=== PATIENT | female | born 1985 | race Caucasian/White ===

== ENCOUNTER 2020-02-13 17:07 | Emergency (ER) | payer MEDICAID, SELFPAY ==
[2020-02-13 17:08] VITALS: BP 129/87; PULSE 76; RESP 16; TEMP 36.8; O2SAT 98
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
--- NOTE | 2020-02-13 17:50 | NUR.NOTE ---
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
[2020-02-13 20:02] VITALS: BP 122/80; PULSE 70; RESP 16; TEMP 36.8; O2SAT 98
== END 2020-02-13 20:15 | disposition home or self-care (01) ==
PROVIDERS: Emergency Provider Physician Assistant; PCP Physician Assistant
DX: T74.11XA Adult physical abuse, confirmed, initial encounter (principal); R51 Headache; M54.2 Cervicalgia; Y04.2XXA Assault by strike against or bumped into by another person, initial encounter; Y07.01 Husband, perpetrator of maltreatment and neglect
CPT/HCPCS: 99284; 70450; 72125; 99283

== ENCOUNTER 2020-05-15 21:01 | Emergency (ER) | payer MEDICAID, SELFPAY ==
[2020-05-15 21:02] VITALS: BP 135/77; PULSE 90; RESP 20; TEMP 36.6; O2SAT 98
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
--- NOTE | 2020-05-15 21:25 | DI.CT_ITS ---
EXAM: CT HEAD CERV SPINE FACIAL WO COMPARISON: CT CT HEAD CERVICAL SPINE WO from 02/13/2020 FINDINGS: CT examination of the cervical spine was performed without contrast administration. There is no evide nce of acute cervical spine fracture or dislocation. Tracheolaryngeal structures appear intact. No ce rvical mass or adenopathy. Intervertebral disc spaces are well maintained. Noncontrast cranial CT was performed. Ventricular system is normal in appearance. No evidence of acut e intracranial hemorrhage, mass effect, or midline shift. No calvarial fracture. The orbital and temp oral bone structures appear intact. Noncontrast CT of the facial region was performed. Facial fracture. Normally aerated paranasal sinu ses noted. Orbital contents appear intact and there is no orbital fracture. IMPRESSION: No evidence of acute cervical spine injury. No evidence of acute intracranial injury. Negative CT facial region. RADIATION DOSE DELIVERED: Total DLP Total DLP DATA REPOSITORY: All CT scans at this facility are submitted to the National Radiology Data Registry (NRDR) Dose Index Registry (DIR) with the [employer] (ACR). RADIATION OPTIMIZATION: All CT scans at this facility use at least one of these dose optimization te chniques: automated exposure control; mA and/or kV adjustment per patient size (includes targeted exa ms where dose is matched to clinical indication); or iterative reconstruction.
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
== END 2020-05-15 22:10 | disposition home or self-care (01) ==
PROVIDERS: Emergency Provider Emergency Medicine; PCP Physician Assistant
DX: S06.9X9A Unspecified intracranial injury with loss of consciousness of unspecified duration, initial encounter (principal); Y04.2XXA Assault by strike against or bumped into by another person, initial encounter; Y07.03 Male partner, perpetrator of maltreatment and neglect; M54.2 Cervicalgia
CPT/HCPCS: 99284; 70450; 70486; 72125

== ENCOUNTER 2020-11-03 01:31 | Emergency (ER) | payer MEDICAID, SELFPAY ==
[2020-11-03 01:36] VITALS: BP 115/75; PULSE 75; RESP 15; TEMP 36.7; O2SAT 99
--- NOTE | 2020-11-03 01:42 | ED.GENADUL_ITS ---
Discharge Plan Disposition Patient Disposition: HOME Condition: Good Discharge Details Clinical Impression: Abdominal pain Primary Care Provider: Michelle Bullock ED Provider: Oumar Mendieta Meds and New Rx's Prescriptions: Continued multivitamin tablet 1 tab PO DAILY RF: 0 propranolol 60 mg capsule,extended release 24 hr 60 mg PO DAILY RF: 0 cholecalciferol (vitamin D3) 2,000 unit capsule 1,000 unit PO DAILY RF: 0 norgestimate-ethinyl estradiol [Ortho Tri-Cyclen (28)] 0.18/0.215/0.25 mg-35 mcg (28) Tablet 1 tab PO DAILY RF: 0 paroxetine HCl 20 mg tablet 20 mg PO DAILY RF: 0 gabapentin 100 mg capsule 100 mg PO HS RF: 0 Changed MOTRIN IB 200 MG tablet 3 tab PO Q6H PRN PRNQty: 0 RF: 0 Discharge Instructions Additional Instructions: 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 Drink plenty of fluids to stay hydrated. Use ibuprofen 2 to 3 tablets every 6-8 hours for pain. Return to ED for fever, persistent vomiting, new or worsening pain. Stand Alone Forms: Work Release Medical Decision Making Urine test is negative. Abdominal exam is completely benign. No CVAT. Patient orthostatic by systolic pressure. Pulse unchanged but patient on propranolol. IV established and a liter of LR ordered. Toradol ordered. Hemoglobin hematocrit ordered. Patient urinalysis with trace blood no evidence of infection. Hemoglobin and hematocrit are normal. Repeat orthostatics after 1 L now normal with good blood pressure. Pain better though not resolved with Toradol. Patient reports allergy to Tylenol. She also reports history of seizure disorder, which should make tramadol contraindicated. She appears very comfortable. I will hold off treating with narcotics at this point. She will be discharged with instructions to use ibuprofen over the next few days and contact her DIRECTOR OF NURSES REGISTRY for follow-up. Lab Data Lab results reviewed: Yes I reviewed the patient's lab results. HPI General Mode of arrival: ambulatory . Date/Time Provider Initiated Documentation: 11/03/20 01:34 . Limitations to Documentation: no limitations . Information obtained by: patient and RN notes reviewed . HPI Narrative: Patient presents to the ED with right side lower abdominal pain. Patient reports history of endometriosis and ovarian cyst. She reports a recent diagnosis of right ovarian cyst and followed up with her DIRECTOR OF NURSES REGISTRY couple of weeks ago. She reports menstruation for the last week with heavy bleeding today. She feels lightheaded and dizzy at times. She has had worsening right abdominal pain and could not sleep tonight. Pain has been present for few days just worse tonight. She did not take anything for this. She reports prior history of narcotic abuse but clean and sober for years. She has been on Ultram previously. She denies any urinary symptoms. She denies back pain. She denies fever. She has had some diarrhea for the last couple of days. She has had nausea but no vomiting. Related Data Home Medications Medication Instructions Recorded Confirmed cholecalciferol (vitamin D3) 50 1,000 unit PO DAILY cap 07/02/18 11/03/20 mcg (2,000 unit) capsule multivitamin 1 tab PO DAILY 07/02/18 11/03/20 propranolol 60 mg capsule,24 60 mg PO DAILY 07/02/18 11/03/20 hr,extended release norgestimate-ethinyl estradiol 1 tab PO DAILY 02/13/20 [Ortho Tri-Cyclen (28)] Motrin Ib 3 tab PO Q6H PRN PRN #0 11/03/20 11/03/20 gabapentin 100 mg PO HS 11/03/20 11/03/20 paroxetine HCl 20 mg PO DAILY 11/03/20 11/03/20 Previous Rx's Medication Instructions Recorded Motrin Ib 3 tab PO Q6H PRN PRN #0 11/03/20 Allergies Allergy/AdvReac Type Severity Reaction Status Date / Time hydroxyzine Allergy Intermediate HIVES Verified 11/03/20 01:45 hydrocodone bitartrate Allergy RASH/HIVES Unverified 11/03/20 01:45 [From Vicodin] menthol [From Icy Hot] Allergy Unverified 11/03/20 01:45 methyl salicylate Allergy Unverified 11/03/20 01:45 [From Icy Hot] fluoxetine [From Prozac] AdvReac Mild CRIES Verified 11/03/20 01:45 acetaminophen AdvReac VOMITING Unverified 11/03/20 01:45 diphenhydramine HCl AdvReac VOMITING Unverified 11/03/20 01:45 [From Benadryl] General BENJI: 2 Review of Systems Narrative: As documented in HPI otherwise negative as below. Const: no fever, chills, weakness Resp: no cough, SOB, pleuritic pain CV: no CP, diaphoresis, edema, syncope GI: no vomiting Neuro: no headache, numbness, focal weakness, confusion PFSH Medical History (Updated 11/03/20 @ 04:18 by Oumar Mendieta MD) Depression Drug abuse Migraine Seizure disorder Surgical History Excision, Lipoma L upper back Dr Sotelo 2001 extraction wisdom teeth age 22yrs H/O cervical polypectomy hernia repair ? type age 9yo Family History Father Unknown family medical history Mother Cancer Paternal Uncle Heart disease Nephew Congenital malformation of brain Maternal Aunt Mental retardation Other Diabetes Hyperlipidemia Mental disorder Personal history of malignant neoplasm Social History Smoking/Tobacco Use Status: Current-Occasional Smoking risk assessment performed?: Yes Alcohol Intake: never Drug use: Current Sobriety Substance use type: does not use and former substance user Details: Clean x 14 years. Household members: spouse Do you feel safe at home: Yes Exam Narrative Exam Narrative: Const: WDWN female in NAD. HEENT: NC/AT. Normal facial exam. Eyes: Normal conjunctiva and sclera. Neck: Supple. Trachea midline. Lungs: Normal respiratory effort. Lungs are clear. Cor: RRR without murmur/gallop. Good radial pulses. GI: Soft. NT/ND. No guarding or rebound. Back: No CVAT Pelvic: deferred Neuro: A+O x 3. Normal speech, mentation, gait. Cranial nerves II - XII grossly intact. No gross motor or sensory deficit. Ext: No C/C/E. Skin: Warm and dry without rash.
[2020-11-03 02:36] VITALS: BP 102/81; BP 122/72; PULSE 76; PULSE 79
[2020-11-03 02:41] VITALS: BP 102/81; BP 122/72; PULSE 72; PULSE 79
[2020-11-03 03:00] LABS: Bilirubin Negative (Negative); Blood Trace-intact (Negative); Clarity Clear (Clear); Glucose Negative (Negative); Ketones Negative (Negative); Leukocyte Esterase Negative (Negative); Nitrite Negative (Negative); Specific Gravity >= 1.030 (1.005-1.025); Urobilinogen 0.2 EU/dL (Up TO 0.2); pH 6.5 (5-8)
[2020-11-03 03:11] LABS: Bacteria Rare HPF (Negative); C & S Indicated? No; Casts Negative LPF (Negative); Crystals Negative HPF (Negative); Epithelial Cells Rare HPF (Negative); Mucus Negative (Negative); WBC Negative HPF (0-5)
[2020-11-03] MEDS: Lactated Ringers 1,000 ML 1000 ML IV (03:16)
[2020-11-03] MEDS: Ketorolac 30 MG/ML VIAL IVP (03:16)
[2020-11-03 03:33] LABS: HCT 37.9 % (36.0-46.0); HGB 12.7 g/dL (11.2-15.7)
[2020-11-03 03:40] VITALS: BP 110/66; PULSE 60; RESP 18; O2SAT 100
[2020-11-03 04:12] VITALS: BP 113/72; BP 115/72; BP 121/82; PULSE 64; PULSE 70; PULSE 78
== END 2020-11-03 04:29 | disposition home or self-care (01) ==
PROVIDERS: Emergency Provider Emergency Medicine; PCP Family Medicine
DX: R10.31 Right lower quadrant pain (principal); R11.0 Nausea; R42 Dizziness and giddiness
CPT/HCPCS: 36415; 81025; 96361; 96374; 99284; 81003; 81015; 85014; 85018; 99283; J1885

== ENCOUNTER 2020-11-28 07:29 | Emergency (ER) | payer MEDICAID, SELFPAY ==
[2020-11-28 07:37] VITALS: BP 133/83; PULSE 78; RESP 16; TEMP 36.4; O2SAT 100
--- OUTSIDE RECORDS SUMMARY | 2020-11-28 07:42 | XMS_ITS ---
:1985 Author Organization [facility] Address [address] [place] [address] Care Team Providers Name Role Phone Bullock Unavailable Unavailable PROBLEMS Type Condition ICD9-CM [id number] Onset Condition SNOMED Cod e Code Code Dates Status Problem Pseudoseizure F44.5 Active 801760 00 Problem Left carpal tunnel G56.02 Active 5 7057637 syndrome Problem Cervical high risk R87.810 Active 1 [id number] human papillomavirus (HPV) DNA test positive Problem Opioid dependence F11.21 Active 19 8062634 in remission Problem PTSD F43.10 Active 14160811 (post-traumatic stress disorder) Problem Sleep disorder G47.9 Active 51556 005 Problem Dysthymic disorder F34.1 Apr, Active 7 4011892 2017 Problem Rhinitis J31.0 Active 15269984 Problem Panic attack as F41.0 Active 1920 41450 reaction to stress Problem Alcohol dependence F10.21 Active 1 37605824 in remission ALLERGIES Substance Reaction Event Type Date Status HydrOXYzine HCl hives Drug Allergy Jul, Active Vicodin nausea Drug Allergy Jul, Active icy hot patch hives Non Drug Allergy Jul, Active Benadryl Allergy hives Drug Allergy Jul, Active PROzac cries alot Drug Allergy Jul, Active Acetaminophen nausea Drug Allergy Jul, Active ENCOUNTERS Encounter Location Date Diagnosis [facility] Aug, [place] [address] [facility] Aug, [place] [address] [facility] 16 Jul, 2020 [place] [address] [facility] 11 Jul, 2020 [place] [address] cancer in mo ther Z80.3 ; Cervical high ri sk human papillomavirus ( HPV) DNA test positive R8 7.810 ; PTSD (post-traum atic stress disorder) F43.10 and Well adult h ealth check Z00.00 [facility] 06 Jun, 2020 [place] [address] screening Z0 2.83 ; Alcohol screening Z13.89 ; Screening for de pression Z13.89 ; Cervica l radiculopathy M5 4.12 ; PTSD (post-traum atic stress disorder) F43.10 ; Dysuria R30.0 ; Need for influenza vaccin ation Z23 and Other specif ied personal risk fa ctors, not elsewhere classi fied Z91.89 [facility] Jun, [place] [address] [facility] May, [place] [address] [facility] Apr, [place] [address] [facility] Apr, [place] [address] [facility] Mar, Rhi nitis J31.0 [place] [address] disorder G47 .9 [facility] Jan, [place] [address] [facility] Jan, [place] [address] [facility] December, [place] [address] [facility] December, [place] [address] stress disor yakov) F43.10 ; Dysthymic disord er F34.1 and Panic attack as reaction to stre ss F41.0 [facility] December, [place] [address] [facility] Dec, [place] [address] [facility] Dec, PTSD [place] [address] stress disor yakov) F43.10 ; Dysthymic disord er F34.1 and Panic attack as reaction to stre ss F41.0 [facility] Dec, [place] [address] [facility] Dec, [place] [address] [facility] Dec, [place] [address] [facility] Dec, [place] [address] [facility] Dec, [place] [address] [facility] Oct, L[place] [address] to stress F4 1.0 [facility] Oct, [place] [address] [facility] Oct, PTSD [place] [address] stress disor yakov) F43.10 ; Dysthymic disord er F34.1 and Panic attack as reaction to stre ss F41.0 [facility] Oct, [place] [address] [facility] Oct, PTSD ([place] [address] stress disor yakov) F43.10 ; Dysthymic disord er F34.1 and Panic attack as reaction to stre ss F41.0 [facility] Oct, [place] [address] [facility] Oct, [place] [address] [facility] Oct, P[place] [address] stress disor yakov) F43.10 [facility] Oct, [place] [address] [facility] Oct, [place] [address] [facility] Oct, [place] [address] [facility] Oct, PTSD [place] [address] stress disor yakov) F43.10 and Encounter fo r surveillance of contraceptive pi lls Z30.41 [facility] Oct, [place] [address] [facility] Oct, [place] [address] [facility] Sep, [place] [address] [facility] Sep, [place] [address] [facility] Sep, [place] [address] [facility] Sep, [place] [address] [facility] Sep, [place] [address] R29.818 [facility] Sep, PTSD ([place] [address] stress disor yakov) F43.10 ; Dysthymic disord er F34.1 and Panic attack as reaction to stre ss F41.0 [facility] Sep, [place] [address] [facility] Aug, [place] [address] [facility] Aug, [place] [address] [facility] Aug, [place] [address] [facility] Aug, PTSD ([place] [address] stress disor yakov) F43.10 ; Dysthymic disord er F34.1 and Panic attack as reaction to stre ss F41.0 [facility] Jul, [place] [address] administered at current visit Z23 ; Coug h R05 and Rhinitis J31.0 [facility] Jul, [place] [address] [facility] Jul, [place] [address] [facility] Jul, [place] [address] [facility] Jul, [place] [address] [facility] Jul, [place] [address] of contracep tive pills Z30.41 and Panic attack as reaction to stre ss F41.0 [facility] Jul, [place] [address] [facility] Jul, [place] [address] [facility] Jun, [place] [address] [facility] Jun, PTSD ([place] [address] stress disor yakov) F43.10 ; Dysthymic disord er F34.1 and Panic attack as reaction to stre ss F41.0 [facility] May, Sor e throat J02.9 [place] [address] [facility] May, [place] [address] [facility] May, [place] [address] [facility] May, [place] [address] [facility] May, [place] [address] [facility] May, PTSD ([place] [address] stress disor yakov) F43.10 ; Dysthymic disord er F34.1 and Panic attack as reaction to stre ss F41.0 [facility] Apr, Abd ominal pain R10.9 [place] [address] [facility] Apr, [place] [address] [facility] Apr, PTSD ([place] [address] stress disor yakov) F43.10 ; Dysthymic disord er F34.1 and Panic attack as reaction to stre ss F41.0 [facility] Apr, [place] [address] [facility] Apr, [place] [address] remission F11.2 1 and Alcohol dependen ce in remission F10.21 [facility] Apr, [place] [address] [facility] Apr, PTSD ([place] [address] stress disor yakov) F43.10 ; Dysthymic disord er F34.1 and Panic attack as reaction to stre ss F41.0 [facility] Apr, [place] [address] [facility] Apr, [place] [address] [facility] Apr, PTSD ([place] [address] stress disor yakov) F43.10 ; Dysthymic disord er F34.1 and Panic attack as reaction to stre ss F41.0 [facility] Apr, Pse udoseizure F44.5 ; [place] [address] (post-trauma tic stress disorder) F43.10 and Panic attack as reacti on to stress F41.0 [facility] Apr, [place] [address] [facility] Mar, [place] [address] [facility] Mar, [place] [address] [facility] Mar, [place] [address] [facility] Mar, [place] [address] [facility] Mar, Ski n abnormality L98.9 [place] [address] [facility] Mar, [place] [address] [facility] Mar, [place] [address] [facility] Mar, Ski n lesion of back L98.9 [place] [address] [facility] Jan, Tic k [place] [address] [facility] Jan, [place] [address] [facility] Jan, [place] [address] Z00.00 ; PTS D (post-traumatic stress disorder) F43.10 ; Pseudoseizure F4 4.5 ; Left carpal tunnel sy ndrome G56.02 ; Cervica l high risk human papil lomavirus (HPV) DNA test p ositive R87.810 ; Rhinit is J31.0 ; Dysthymic disord er F34.1 ; Panic attack as reaction to stress F41.0 ; Encounter for dr vinay screening Z02.83 ; Screening for ce rvical cancer Z12.4 ; A lcohol screening Z13.89 ; Soft tissue mass M79. 9 and Encounter for martin rveillance of contraceptive pills Z30.41 [facility] Jan, [place] [address] [facility] December, [place] [address] [facility] December, [place] [address] screening Z0 2.83 ; Alcohol screening Z13.89 ; Contraception Z7 8.9 and Pre-conception c ounseling Z31.69 [facility] December, [place] [address] [facility] December, [place] [address] syndrome G56 .02 [facility] Dec, [place] [address] [facility] Dec, [place] [address] [facility] Dec, [place] [address] [facility] Dec, [place] [address] [facility] Oct, [place] [address] [facility] Oct, [place] [address] [facility] Oct, [place] [address] [facility] Oct, Ilan sea and vomiting R11.2 [place] [address] and Sore thr oat J02.9 [facility] Oct, PTSD [place] [address] stress disor yakov) F43.10 ; Dysthymic disord er F34.1 and Panic attack as reaction to stre ss F41.0 [facility] Oct, [place] [address] [facility] Oct, Dysthymic di sorder F34.1 [place] [address] [place] [address] [facility] Oct, PTSD ([place] [address] stress disor yakov) F43.10 ; Dysthymic disord er F34.1 and Panic attack as reaction to stre ss F41.0 [facility] Sep, [place] [address] [facility] Sep, Neck pain M5 4.2 [place] [address] carpal tunne l syndrome G56.02 [facility] Sep, PTSD [place] [address] stress disor yakvo) F43.10 ; Dysthymic disord er F34.1 and Panic attack as reaction to stre ss F41.0 [facility] Sep, Con tact dermatitis L25.9 [place] [address] [facility] Sep, [place] [address] [facility] Sep, [place] [address] [facility] Sep, [place] [address] [facility] Aug, [place] [address] cancer in mo ther Z80.3 ; Breast pain, lef t N64.4 ; Nipple discharge in female N64.52 ; Screeni ng breast examination Z12. 39 and Nasal congestion with rhinorrhea J34.8 9 [facility] Aug, [place] [address] [facility] Aug, [place] [address] [facility] Aug, [place] [address] [facility] Jul, Acu te sinusitis J01.90 [place] [address] [facility] Jul, [place] [address] [facility] Jul, Pseudoseizur [place]44[place]5 [place] [address] Dysthymic di sorder F34.1 [facility] Jul, [place] [address] [facility] Jul, PTSD ([place] [address] stress disor yakov) F43.10 ; Dysthymic disord er F34.1 and Panic attack as reaction to stre ss F41.0 [facility] Jul, [place] [address] [facility] Jul, [place] [address] contraceptiv e management, unspecified Z30. 9 [facility] Jul, [place] [address] screening Z0 2.83 ; Influenza vaccin ation administered at current visit Z23 ; Alco hol screening Z13.89 ; Swelling, lymph nodes R59.9 ; Encounte r for surveillance of injectable contraceptive Z3 0.42 and Cold J00 [facility] Jul, [place] [address] [facility] Jun, [place] [address] [facility] Jun, [place] [address] [facility] Jun, Neck sprain, [place] [address] encounter S1 3.9XXA and Left carpal tunn el syndrome G56.02 [facility] Jun, PTSD ([place] [address] stress disor yakov) F43.10 ; Dysthymic disord er F34.1 and Panic attack as reaction to stre ss F41.0 [facility] Jun, [place] [address] [facility] Jun, Pha ryngitis J02.9 [place] [address] Cough R05 [facility] Jun, [place] [address] [facility] May, Neck sprain, [place] [address] encounter S1 3.9XXA and Left carpal tunn el syndrome G56.02 [facility] May, Dys thymic disorder F34.1 [place] [address] and Rhinitis J31.0 [facility] May, [place] [address] [facility] Apr, [place] [address] [facility] Apr, Den sarah disorder K08.9 [place] [address] Contraceptiv e surveillance Z30.40 [facility] Apr, PTSD [place] [address] stress disor yakov) F43.10 ; Dysthymic disord er F34.1 and Panic attack as reaction to stre ss F41.0 [facility] Apr, [place] [address] [facility] Apr, [place] [address] [facility] Mar, Dys thymic disorder F34.1 [place] [address] [facility] Mar, [place] [address] [facility] Mar, PTSD ([place] [address] stress disor yakov) F43.10 ; Dysthymic disord er F34.1 and Panic attack as reaction to stre ss F41.0 [facility] Mar, [place] [address] [facility] Mar, Pse udoseizure F44.5 [place] [address] [facility] Mar, [place] [address] [facility] Mar, [place] [address] [facility] Mar, [place] [address] [facility] Mar, Shira n, dental K08.89 [place] [address] Face pain R5 1 [facility] Jan, [place] [address] [facility] Jan, [place] [address] to stress F4 1.0 [facility] Jan, [place] [address] [facility] Jan, [place] [address] syndrome G56 .02 and Sprain of interphalange al joint of left ring fin jey, initial encounte r S63.635A [facility] [address] [place] [address] Jan, PTSD ([place] [address] stress disor yakov) F43.[address] Jan, PTSD ([place] [address] stress disor yakov) F43.10 ; Head injury S09. 90XA and Dysthymic disord er F34.1 [facility] Jan, Rhi [place]itis J31[place]0 [place] [address] Dysthymic di sorder F34.1 [facility] [address] [place] [address] Jan, PTSD ([place] [address] stress disor yakov) F43.10 ; Panic attack as reaction to stress F41.0 and Dysthymic disord er F34.1 [facility] [address] [place] [address] December, [place] [address] joint of lef t ring finger, initial encounte r S63.635A [facility] [address] [place] [address] December, [place] [address] joint of lef t ring finger, initial encounte r S63.635A [facility] [address] [place] [address] December, Dental infe ction K04.7 [place] [address] Injury of fi nger of left hand, subsequent encounter S69.92XD [facility] [address] [place] [address] December, PTSD ([place] [address] stress disor yakov) F43.[address] December, PTSD ([place] [address] stress disor yakov) F43.10 [facility] [address] [place] [address] December, PTSD ([place] [address] stress disor yakov) F43.[address] December, PTSD ([place] [address] stress disor yakov) F43.10 [facility] [address] [place] [address] December, [place] [address] contraceptiv e management, unspecified Z30. 9 ; PTSD (post-traumatic stress disorder) F43.10 and Pseudoseizure F4 4.5 [facility] Dec, [place] [address] pneumonia J1 8.9 [facility] Dec, PTSD ([place] [address] stress disor yakov) F43.10 [facility] Dec, [place] [address] [facility] Dec, PTSD ([place] [address] stress disor yakov) F43.10 [facility] Dec, [place] [address] [facility] Dec, [place] [address] Dec, PTSD ([place] [address] stress disor yakov) F43.10 ; Head injury S09. 90XA and Pseudoseizure F4 4.5 [facility] Dec, [place] [address] Dec, PTSD ([place] [address] stress disor yakov) F43.10 ; Head injury S09. 90XA and Pseudoseizure F4 4.5 [facility] Oct, [place] [address] Oct, PTSD ([place] [address] stress disor yakov) F43.10 and Head injury S09.90XA [address] Oct, PTSD ([place] [address] stress disor yakov) F43.10 and Head injury S09.90XA [address] Oct, PTSD ([place] [address] stress disor yakov) F43.10 ; Head injury S09. 90XA and Pseudoseizure F4 4.[address] Oct, Head injury S09[place] [address] PTSD (post-t raumatic stress disorder) F43.[address] Oct, PTSD ([place] [address] stress disor yakov) F43.[address] Oct, PTSD ([place] [address] stress disor yakov) F43.10 ; Head injury S09. 90XA and Pseudoseizure F4 4.[address] Oct, PTSD ([place] [address] stress disor yakov) F43.10 ; Head injury S09. 90XA and Pseudoseizure F4 4.[address] Oct, PTSD ([place] [address] stress disor yakov) F43.10 and Head injury S09.90XA [facility] [address] [place] [address] Oct, PTS [place] [address] stress disor yakov) F43.10 [facility] [address] [place] [address] Oct, [place] [address] [facility] [address] [place] [address] Oct, [place] [address] Z30.40 and B urn T30.[address] Oct, Head [place]09[place] [address] Sep, PTSD ([place] [address] stress disor yakov) F43.[address] Sep, PTSD ([place] [address] stress disor yakov) F43.[address] Sep, PTSD ([place] [address] stress disor yakov) F43.10 [facility] [address] [place] [address] Sep, [place] [address] M25.571 and Strain of peroneal tendon of right foot, initial en counter S86.311A [facility] [address] [place] [address] Aug, [place] [address] [facility] [address] [place] [address] Aug, PTSD ([place] [address] stress disor yakov) F43.[address] [facility] Jul, [place] [address] M25.571 ; S prain of anterior talofib ular ligament of righ t ankle, initial encounte r S93.491A and Strain of pe roneal tendon of right foot, initial encounte r S86.311A [facility] Jul, [place] [address] [facility] Jul, Pse udoseizure F44.5 [place] [address] [facility] Jul, [place] [address] Z30.40 and W eight gain R63.5 [facility] Jul, [place] [address] [facility] Jul, Pse udoseizure F44.5 [place] [address] [facility] 08 Jul, 2017 [place] [address] M25.571 ; S prain of anterior talofib ular ligament of righ t ankle, initial encounte r S93.491A and Strain of pe roneal tendon of right foot, initial encounte r S86.311A [facility] Jul, Depo-P rovera contraceptive OFFICE 1 [place], [place] status Z30.40 [id number] xxOFFICE NON CLINICAL [facility] Jul, [place] [address] [facility] Jul, [place] [address] [facility] [address] [place] [address] Jun, Deh ydration E86.0 [place] [address] Viral gastro enteritis A08.4 [facility] Jun, PTSD ([place] [address] stress disor yakov) F43.10 zzLPO-PRIM and PSYCH [address] [place] [address] May, PTSD ([place] [address] stress disor yakov) F43.10 [facility] [address] [place] [address] May, [facility] hitis, acute J20.9 [place] [address] [facility] Apr, [place] [address] zzLPO-PRIM and PSYCH [address] [place] [address] Apr, [place] [address] Z00.00 ; Cer vical high risk human papil lomavirus (HPV) DNA test p ositive R87.810 ; Depo-P rovera contraceptive st atus Z30.40 ; PTSD (post-traumatic stress disorder) F43.10 and Pseudoseizure F4 4.5 zzLPO-PRIM and PSYCH [facility] Apr, PTSD ([place] [address] stress disor yakov) F43.10 zzLPO-PRIM and PSYCH [facility] Mar, PTSD ([place] [address] stress disor yakov) F43.10 [facility] Mar, [place] [address] [facility] Jan, [place] [address] [facility] Jan, Sor e throat J02.9 [place] [address] Rhinitis J31 .0 [facility] Jan, [place] [address] syndrome G56 .02 and Neck pain M54.2 zzLPO-PRIM and PSYCH [facility] December, PTSD ([place] [address] stress disor yakov) F43.10 zzLPO-PRIM and PSYCH [facility] December, [place] [address] of contracep tives Z30.40 ; test n egative Z32.02 ; Cervica l high risk human papil lomavirus (HPV) DNA test p ositive R87.810 and Atyp ical squamous cells o f undetermined sig nificance on cytologic sme ar of cervix (ASC-US) R87.610 xxOFFICE NON CLINICAL [address] [place] [address] December, [place] [address] ORTHOPEDIC OFFICE [address] [place] [address] December, [place] [address] syndrome G56 .02 and Neck pain M54.2 CASE MANAGEMENT [address] [place] [address] December, Fever R50.9 [place] [address] zzLPO-PRIM and PSYCH [facility] Dec, PTSD ([place] [address] stress disor yakov) F43.10 zzLPO-PRIM and PSYCH [facility] Dec, PTSD ([place] [address] stress disor yakov) F43.10 ORTHOPEDIC OFFICE [facility] Oct, [place] [address] syndrome G56 .02 and Neck pain M54.2 [facility] [facility] [address] [place] [address] Oct, Ski n anomaly Q82.9 [place] [address] PTSD (post-t raumatic stress disorder) F43.10 zzLPO-PRIM and PSYCH [facility] Oct, PTSD ([place] [address] stress disor yakov) F43.10 zzLPO-PRIM and PSYCH [facility] Oct, [place] [address] ORTHOPEDIC OFFICE [facility] Oct, [place] [address] syndrome G56 .02 zzLPO-PRIM and PSYCH [facility] Oct, PTSD ([place] [address] stress disor yakov) F43.10 LPO-SPECIALTY TEAM [facility] Oct, [place] [address] zzLPO-PRIM and PSYCH [facility] Oct, PTSD ([place] [address] stress disor yakov) F43.10 [facility] Oct, PTS D [place] [address] stress disor yakov) F43.10 and Pseudoseizur e F44.5 zzLPO-PRIM and PSYCH [facility] Oct, Encounter [place] [address] of contracep tives Z30.40 zzLPO-PRIM and PSYCH [facility] Oct, PTSD ([place] [address] stress disor yakov) F43.10 zzLPO-PRIM and PSYCH [facility] Sep, PTSD ([place] [address] stress disor yakov) F43.10 zzLPO-PRIM and PSYCH [facility] Sep, PTSD ([place] [address] stress disor yakov) F43.10 [facility] Sep, [place] R05 [place] [address] Pseudoseizur e F44.5 [facility] Aug, Cou [place] R05 [place] [address] (post-trauma tic stress disorder) F43.10 [place] [facility] Jul, [place]ev [place] R50.9 [place] [address] zzLPO-PRIM and PSYCH [facility] Jul, [place] [address] Z30.40 and E ncounter for immunization Z23 LPO-SPECIALTY TEAM [facility] Jul, [place] [address] [facility] Jun, PTS D ([place] [address] stress disor yakov) F43.10 and Unspecified fall, initial encounte r W19.XXXA [place] [facility] Jun, Fev er R50.9 [place] [address] zzLPO-PRIM and PSYCH [facility] Jun, PTSD ([place] [address] stress disor yakov) F43.10 [facility] Jun, OFFICE 1 [place] [id number] [place] [address] PHYSICIAN OFFICE [facility] Jun, Uns pecified fall, [place] [address] encounter W1 9.XXXA [facility] [facility] May, Uns pecified fall, [place] [address] encounter W1 9.XXXA zzLPO-PRIM and PSYCH [facility] May, UTI ([place] [address] infection) N 39.0 zzLPO-PRIM and PSYCH [facility] May, [place] [address] Z30.40 zzLPO-PRIM and PSYCH [facility] May, PTSD ([place] [address] stress disor yakov) F43.10 [facility] May, Irr egular bleeding N92.6 [place] [address] and Scapulal jossue M89.8X1 zzLPO-PRIM and PSYCH [facility] Apr, [place] [address] [facility] Apr, [place] [address] [facility] Apr, [place] [address] ADMINISTRATION [facility] Apr, [place] [address] zzLPO-PRIM and PSYCH [facility] Jan, [place] [address] [facility] Jan, PTS D ([place] [address] stress disor yakov) F43.10 zzLPO-PRIM and PSYCH [facility] Jan, [place] [address] Z30.40 ; Enc ounter for drug screening Z 02.83 ; Alcohol screenin g Z13.89 ; Encounter for sc reening for other infect ious and parasitic diseas es Z11.8 and Dysuria R30. 0 LPO-SPECIALTY TEAM [facility] December, [place] [address] [facility] December, Fever R50.9 [place] [address] [facility] December, Fev er R50.9 [place] [address] pain R10.9 LPO-SPECIALTY TEAM [facility] December, [place] [address] [facility] December, [place] [address] ADMINISTRATION [facility] Dec, [place] [address] zzLPO-PRIM and PSYCH [facility] Dec, [place] [address] LPO-SPECIALTY TEAM [facility] Dec, [place] [address] zzLPO-PRIM and PSYCH [facility] Dec, Screen fo r [place] [address] transmitted disease) Z11.3 [facility] Dec, OFFICE 1 [place] [address] zzLPO-PRIM and PSYCH [address] [place] [address] Dec, [place] [address] Z00.00 ; OCP (oral contraceptive pi lls) initiation Z30.9 ; Screen for STD (sexuall y transmitted dise ase) Z11.3 ; test negative Z32.02 and Scree bar for cervical cancer Z12.4 zzLPO-PRIM and PSYCH [facility] Oct, PTSD ([place] [address] stress disor yakov) F43.10 zzLPO-PRIM and PSYCH [address] [place] [address] Oct, [place] [address] Z30.40 zzLPO-PRIM and PSYCH [facility] Oct, PTSD ([place] [address] stress disor yakov) F43.10 [facility] [address] [place] [address] Oct, Rhi nitis J31.0 ; [place] [address] Pseudoseizur e F44.5 and Cough R05 zzLPO-PRIM and PSYCH [facility] Oct, PTSD ([place] [address] stress disor yakov) F43.10 [facility] [address] [place] [address] Oct, Hea d injury S09.90XA [place] [address] [facility] Oct, Hea d injury S09.90XA [place] [address] ADMINISTRATION [facility] Oct, [place] [address] zzLPO-PRIM and PSYCH [facility] Oct, PTSD ([place] [address] stress disor yakov) F43.10 [place] [facility] Sep, Pro ductive cough R05 [place] [address] zzLPO-PRIM and PSYCH [facility] Sep, PTSD ([place] [address] stress disor yakov) F43.10 zzLPO-PRIM and PSYCH [facility] Sep, PTSD ([place] [address] stress disor yakov) F43.10 zzLPO-PRIM and PSYCH [facility] Sep, [place] [address] zzLPO-PRIM and PSYCH [facility] Aug, [place] [address] Z30.40 [facility] Aug, Syn cope R55 [place] [address] F41.9 [facility] [address] [place] [address] Aug, [place] [address] zzLPO-PRIM and PSYCH [facility] Aug, PTSD ([place] [address] stress disor yakov) F43.10 CASE MANAGEMENT [facility] Aug, [place] [address] [facility] [facility] Aug, Syn cope R55 [place] [address] zzLPO-PRIM and PSYCH [facility] Aug, [place] [address] disorder (PT SD) 309.81 LPO-SPECIALTY TEAM [facility] Jul, [place] [address] [facility] Jul, Syn cope R55 ; [place] [address] vaccination administered at current visit Z23 and Anxiety F41.9 [facility] [address] [place] [address] Jul, [place] [address] zzLPO-PRIM and PSYCH [facility] Jul, [place] [address] [facility] Jun, [place] [address] disorder (PT SD) 309.81 and Encounter for contraceptive ma nagement, unspecified Z30. 9 [facility] May, [place] [address] [facility] Mar, ABR ASION NEC 919.0 [place] [address] zzLPO-PRIM and PSYCH [facility] Jan, [place] [address] zzLPO-PRIM and PSYCH [facility] Jan, [place] [address] disorder (PT SD) 309.81 [facility] Jan, Dep ressed 311 ; [place] [address] 300.00 and D EPO PROVERA FOR CONTRO L V25.9 [facility] December, Anx iety 300.00 [place] [address] [facility] Oct, [address] PHYSICIAN OFFICE [facility] Oct, SCR -[place] [address] V78.0 and Ex posure 994.9 zzLPO-PRIM and PSYCH [facility] Sep, [place] [address] [place] [address] PHYSICIAN OFFICE [facility] Sep, [place] [address] [place] [address] PHYSICIAN OFFICE [facility] Sep, Anx iety 300.00 [place] [address] zzLPO-PRIM and PSYCH [facility] Aug, [place] [address] xxRADIOLOGY [facility] Jul, [place] [address] [place] [address] PHYSICIAN OFFICE [facility] Jul, Anx iety 300.00 [place] [address] zzLPO-PRIM and PSYCH [facility] Jul, [place] [address] zzLPO-PRIM and PSYCH [facility] Jun, [place] [address] zzLPO-PRIM and PSYCH [facility] Jun, [place] [address] zzLPO-PRIM and PSYCH [facility] Jun, [place] [address] zzLPO-PRIM and PSYCH [facility] Jun, Pharyngit is 462 ; [place] [address] Depression w ith anxiety 300.4 ; URI (upp er respiratory infe ction) 465.9 ; Flu vacc ine need V04.81 and Nevus of skin of lip 216.0 zzLPO-PRIM and PSYCH [facility] May, [place] [address] zzLPO-PRIM and PSYCH [facility] May, [place] [address] zzFAMILY PLANNING [facility] May, [place] [address] V25.40 and C ut, accidental 879.8 [facility] May, Fal l at home E888.9 [place] [address] zzLPO-PRIM and PSYCH [facility] May, [place] [address] zzLPO-PRIM and PSYCH [facility] May, [place] [address] 300.4 ORTHOPEDIC OFFICE [address] [place] [address] May, [place] [address] ORTHOPEDIC OFF[address] [place] [address] May, Chronic neck pain 723.1 ; [place] [address] Arm pain, le ft 729.5 and Numbness of uppe r limb 782.0 zLPO-PRIM and PSYCH [address] [place] [address] Apr, Ne[place] [address] 723.1 ADMINISTRATION [facility] Apr, [place] [address] zzLPO-PRIM and PSYCH [facility] Apr, [place] [address] disorder (PT SD) 309.81 and Pseudoseizure 78 0.39 ORTHOPEDIC OFFICE [address] [place] [address] Apr, [place] [address] 723.4 zzLPO-PRIM and PSYCH [facility] Apr, [place] [address] zzLPO-PRIM and PSYCH [facility] Apr, [place] [address] disorder (PT SD) 309.81 zzLPO-PRIM and PSYCH [facility] Apr, Pseudosei zure 780.39 [place] [address] Post traumat ic stress disorder (PTSD) 309.81 zzLPO-PRIM and PSYCH [facility] Mar, Pseudosei zure 780.39 ; [place] [address] Depression w ith anxiety 300.4 ; Neck shira n on left side 723.1 and N umbness and tingling in left arm 782.0 zzLPO-PRIM and PSYCH [facility] Mar, Pseudosei zure 780.39 [place] [address] Depression w ith anxiety 300.4 [place] [facility] Mar, [place] [address] zzLPO-PRIM and PSYCH [facility] Mar, [place] [address] LPO-SPECIALTY TEAM [facility] Mar, SCRN [place] [address] V73.98 ; Scr een for sexually transmi tted diseases V74.5 ; Overactive bladd er 596.51 ; CERVIX/FEM GEN ANOM NOS 752.40 and Vagin itis 616.10 zzLPO-PRIM and PSYCH [facility] Mar, [place] [address] disorder (PT SD) 309.81 zzLPO-PRIM and PSYCH [facility] Mar, [place] [address] 300.4 ; Pseu doseizure 780.39 and Shoul yakov impingement synd tammy 726.2 xxCARDIOLOGY [facility] Mar, Sycope 780.2 [place] [address] zzFAMILY PLANNING [facility] Jan, [place] [address] V25.40 ; PRE GNANCY TEST NEGATIVE V72.41 and Cervical polyp 6 22.7 zzLPO-PRIM and PSYCH [facility] Jan, [place] [address] 300.4 and Ps eudoseizure 780.39 zzLPO-PRIM and PSYCH [facility] December, [place] [address] zzLPO-PRIM and PSYCH [facility] December, [place] [address] CASE MANAGEMENT [facility] December, CONDIT[place] [address] V49.89 xxCARDIOLOGY [facility] Dec, [place] [address] zzLPO-PRIM and PSYCH [facility] Dec, [place] [address] xxCARDIOLOGY [facility] Dec, [place] [address] zzLPO-PRIM and PSYCH [facility] Oct, [place] [address] xxCARDIOLOGY [facility] Oct, [place] [address] zzFAMILY PLANNING [facility] Oct, [place] [address] V25.40 zzLPO-PRIM and PSYCH [facility] Oct, [place] [address] zzFAMILY PLANNING [facility] Oct, [place] [address] zzLPO-PRIM and PSYCH [facility] Oct, [place] [address] zzLPO-PRIM and PSYCH [facility] Oct, [place] [address] zzLPO-PRIM and PSYCH [facility] Sep, Pseudosei zure 780.39 ; [place] [address] Depression w ith anxiety 300.4 and Blurre d vision NOS 368.8 ADMINISTRATION [facility] Sep, [place] [address] zzLPO-PRIM and PSYCH [facility] Aug, [place] [address] zzFAMILY PLANNING [facility] Aug, [place] [address] V25.40 and P REGNANCY TEST NEGATIVE V72.41 zzLPO-PRIM and PSYCH [facility] Aug, [place] [address] 300.4 and Ps eudoseizure 780.39 zzLPO-PRIM and PSYCH [facility] Aug, [place] [address] zzLPO-PRIM and PSYCH [facility] Aug, SCR-[place] [address] V78.0 ADMINISTRATION [facility] Jul, [place] [address] zzLPO-PRIM and PSYCH [facility] Jul, [place] [address] 300.4 and Ps eudoseizure 780.39 xxCARDIOLOGY [facility] Jul, syncope 780.2 ; [place] [address] Tachycardia 785.0 and PTSD 309.81 zzLPO-PRIM and PSYCH [facility] Jul, [place] [address] [place] [facility] May, [place] [address] zzLPO-PRIM and PSYCH [facility] May, [place] [address] V04.81 zzFAMILY PLANNING [facility] May, [place] [address] V25.40 [place] [facility] May, [place] [address] LPO-SPECIALTY TEAM [facility] May, Skin lesion 709.9 [place] [address] zzLPO-PRIM and PSYCH [facility] May, [place] [address] ADMINISTRATION [facility] Apr, [place] [address] zzLPO-PRIM and PSYCH [facility] Apr, Shoulder pain, left 719.41 [place] [address] ; Pseudoseiz ure 780.39 and Nevus 216.9 xxCARDIOLOGY [facility] Apr, syncope 780.2 ; [place] [address] Tachycardia 785.0 and PTSD 309.81 xxCARDIOLOGY [facility] Apr, syncope 780.2 ; [place] [address] Tachycardia 785.0 and PTSD 309.81 [facility] [address] [place] [address] Apr, [place] [address] Apr, [place] [address] ADMINISTRATION [facility] Apr, [place] [address] xxCARDIOLOGY [facility] Apr, syncope 780.2 ; [place] [address] NOS 786.50 ; PTSD 309.81 and Family histo ry of cardiovascular d isease V17.49 xxRADIOLOGY [facility] Mar, [place] [address] zzLPO-PRIM and PSYCH [facility] Mar, [place] [address] 300.4 ; Pseu doseizure 780.39 and Back pain 724.5 zzFAMILY PLANNING [facility] Mar, [place] [address] V25.9 zzLPO-PRIM and PSYCH [facility] Mar, [place] [address] [facility] [address] [place] [address] Mar, [place] [address] [place] [facility] Mar, [place] [address] LPO-SPECIALTY TEAM [facility] Jan, FATIGUE 780 .79 [place] [address] [facility] Jan, FATIGUE 780 .79 ; [place] [address] adult V70.0 ; Contraception ma nagement V25.9 ; CERVIX C A SCREENING V76.2 ; Depression with anxiety 300.4 ; Nevus 21 6.9 ; Screening choles terol level V77.91 ; S creening for diabetes suzanne litus V77.1 and SCR-Ir on Deficiency Anemi a V78.0 zzLPO-PRIM and PSYCH [facility] Jan, Well adul t V70.0 ; [place] [address] Contraceptio n management V25.9 ; CERVIX C A SCREENING V76.2 ; Depression with anxiety 300.4 ; Nevus 21 6.9 ; Screening choles terol level V77.91 ; S creening for diabetes suzanne litus V77.1 ; SCR-Iron Deficiency Anemi a V78.0 and FATIGUE 780. 79 zzLPO-PRIM and PSYCH [facility] December, [place] [address] zzFAMILY PLANNING [facility] December, [place] [address] V25.9 ; PELV IC PAIN 719.45 ; SCR-Cervical C ancer V76.2 ; Screen f or sexually transmi tted diseases V74.5 a nd TEST N EGATIVE V72.41 [facility] Jan, [place] [address] IMMUNIZATIONS Vaccine Route Administration Date Status Influenza FLUBLOK QUAD NONSTATE IM Intramuscular Jul 09, 2018 Administered Influenza FLUBLOK QUAD NONSTATE IM Intramuscular Jul 28, 2019 Administered Influenza FLUBLOK QUAD NONSTATE IM Intramuscular Jun 07, 2020 Administered -Influenza AFLURIA NonState 9+YR IM IM Intramuscular Jun 03 4 Administered pres.free zzInfluenza FLUARIX NonState 3yrs IM Intramuscular Aug 01, 2016 Administered and up zzInfluenza FLUARIX NonState 3yrs IM Intramuscular May 03, 2017 Administered and up zzInfluenza FLUZONE QUAD NONSTATE IM Intramuscular Jul 18, 2015 Administered 3yrs and up Depo-Provera 150MG/ML IM Intramuscular February 11, 2014 Administe red Depo-Provera 150MG/ML IM Intramuscular Aug 01, 2016 Administe red Depo-Provera 150MG/ML IM Intramuscular May 09, 2016 Administe red Depo-Provera 150MG/ML IM Intramuscular February 13, 2016 Administe red Depo-Provera 150MG/ML IM Intramuscular November 21, 2015 Administe red Depo-Provera 150MG/ML IM Intramuscular Aug 31, 2015 Administe red Depo-Provera 150MG/ML IM Intramuscular Jun 02, 2015 Administe red Depo-Provera 150MG/ML IM Intramuscular February 08, 2015 Administe red Depo-Provera 150MG/ML IM Intramuscular May 10, 2014 Administe red Depo-Provera 150MG/ML IM Intramuscular Jul 19, 2017 Administe red Depo-Provera 150MG/ML IM Intramuscular Oct 09, 2017 Administe red Depo-Provera 150MG/ML IM Intramuscular December 31, 2017 Administe red Depo-Provera 150MG/ML IM Intramuscular Apr 04, 2018 Administe red Depo-Provera 150MG/ML IM Intramuscular Oct 17, 2016 Administe red Depo-Provera 150MG/ML IM Intramuscular January 22, 2017 Administe red Depo-Provera 150MG/ML IM Intramuscular Apr 22, 2017 Administe red Depo-Provera 150MG/ML IM Intramuscular Jul 09, 2018 Administe red Tdap adacel or Boostrix NONSTATE IM Intramuscular May 10, 2014 Administered Adults -Influenza FLUZONE NONSTATE 3+yrs IM Intramuscular May 25, 2013 Administered preser free SOCIAL HISTORY Qualifiers Date Former Smoker 10/31/2017 REASON FOR REFERRAL FUNCTIONAL STATUS PLAN OF CARE Activity Details Future Test MG Mammo SCREEN W TOMOS 2020 1111 Future Test CYTO: PAP SMEAR W/HPV (6yr r egimen) [id number] Future Test X C-Spine 2-3 Views [id number] Future Test RAPID STREP SCREEN,IN OFFICE (2 Swab System) [id number] Future Test INFLUENZA A/B [id number] Future Test MG Mammo Screening [id number] Future Test X Scapula L [id number] Future Test X Thoracic Spine 3V (SWIMMER S) [id number] Future Test X C-Spine 4 or more Views 20 516484 Future Test MR Brain w (*37409) [id number] Future Test MR Cervical Spine w (*30637) [id number] Future Test MR Joint Upper Ext L w (7322 2) [id number] Future Test VITAMIN D (25-HYDROXY) TOTAL [id number] Future Test CBC WITH AUTO DIFF [id number] VITAL SIGNS MEDICATIONS Medication Instructions Dosage Frequency Start End Duration Statu s Date Date MULTIVITAMIN orally once a 1 tab(s) 24h Acti ve Multiple day Vitamins Norgestimate-Eth Orally Once a 1 tablet 24h Active Estradiol day 0.25-35 mg-mcg -VITAMIN D 1000 orally once a one daily 24h Jan, Active IU day 2012 PARoxetine HCl Orally Once a 1 tablet in 24h Jun, Active 20 MG day the morning 2019 Melatonin 3 mg Orally Once a 1 tablet at 24h Mar, Active day bedtime as 2019 needed Propranolol HCl Orally Once a 1 tablet on 24h Active 60 MG day an empty stomach Magnesium Oxide orally once a 1 tab(s) Oct, A ctive 500 mg day for 2017 headaches Folic Acid 1 mg Orally Once a 1 tablet 24h 14 January, A ctive day 2018 PROCEDURES Procedure Date Ordered Result Body Site Cardio:Holter (cont 2 to 14day,w/Afib burden) 2015-07-18 (CPT-0296T,0297T,0298T) EEG 2014-10-26 N/A Cardio:Echo,TTE,Age 18+,transTHORACIC (CPT-96044) 2015-08-09 N/A EEG 2016-12-18 N/A Cardio:Holter (cont 2 to 14day,w/Afib burden) 2017-11-26 N/ A (CPT-0296T,0297T,0298T) SBIRT screening 2018-07-09 N/A NERVE CONDUCTION STUDY 2018-09-18 N/A SBIRT screening 2019-01-14 N/A SBIRT screening 2019-02-05 N/A SBIRT screening 2020-06-07 N/A RESULTS Name Result Date Reference Range CHLAMYDIA RRNA(GENPROBE SWAB) 2020-06-07 Chlamydia trachomatis DANIELE Chlamydia trachomatis competition w/reflex Chlamydia trachomatis probe Specimen Source CYTO: PAP SMEAR W/HPV (5yr 2020-06-07 regimen) RESULT UA DIPSTICK ONLY-DIAGNOSTIC Color yellow Clarity clear Specific [place] >=1.030 Glucose. neg Bilirubin neg Ketones neg Blood moderate PH 5.5 Protein neg Urobilinogen 0.2 Nitrite neg Leukocytes neg UA-COLONY COUNT ONLY 2020-06-07 Culture Observations <33867 Mixed growth Isolate 1 Mixed growth^<[id number] PHQ-9 Score BASEMET 2019-09-05 GLUC 94 74-106 BUN 8 7-25 CREATS 0.81 0.60-1.20 EGFR >60 >=60 NA 137 136-144 K+ 4.1 3.5-5.1 CL 104 98-110 CO2 27 22-32 CA 8.8 8.6-10.3 CBC WITH AUTO DIFF 2019-09-05 WBC 6.3 4.0-12.0 RBC 4.6 4.5-6.0 HGB 13.9 12.5-16.0 HCT 42.2 37.0-47.0 MCV 91 78-100 MCH 30.0 27.0-32.0 MCHC 32.9 32.0-36.0 RDW 12.6 11.0-14.0 PLT 231 140-440 MPV 10.0 7.4-11.0 ANC# 3.5 1.4-7.9 IG# 0.01 0.00-0.10 LY# 1.45 1.50-4.00 MO# 1.03 0.20-0.80 EO# 0.19 0.00-0.70 BA# 0.04 0.00-0.20 NE% 56.5 IG% 0.2 0.0-1.0 LY% 23.2 MO% 16.5 EO% 3.0 BA% 0.6 X Chest 2V 2019-09-05 See Below For Report RAPID STREP SCREEN,IN OFFICE (2 2019-05-26 Swab System) Result NEG RAPID STREP PLATE 2019-05-26 Culture Observations NEGATIVE for Group A, beta hemolytic Strept X Acute Abdominal Series 2019-04-28 See Below For Report BASEMET 2019-04-09 GLUC 114 74-106 BUN 11 7-25 CREATS 0.89 0.60-1.20 EGFR >60 >=60 NA 134 136-144 K+ 3.5 3.5-5.1 CL 101 98-110 CO2 23 22-32 CA 9.0 8.6-10.3 CBC WITH AUTO DIFF 2019-04-09 WBC 9.7 4.0-12.0 RBC 4.2 4.5-6.0 HGB 12.7 12.5-16.0 HCT 37.5 37.0-47.0 MCV 89 78-100 MCH 30.2 27.0-32.0 MCHC 33.9 32.0-36.0 RDW 12.3 11.0-14.0 PLT 239 140-440 MPV 10.2 7.4-11.0 ANC# 7.6 1.4-7.9 IG# 0.04 0.00-0.10 LY# 0.78 1.50-4.00 MO# 0.98 0.20-0.80 EO# 0.23 0.00-0.70 BA# 0.05 0.00-0.20 NE% 78.6 IG% 0.4 0.0-1.0 LY% 8.0 MO% 10.1 EO% 2.4 BA% 0.5 UA-Urine ,AT HOSPITAL 2019-04-09 HCG-U NEGATIVE NEGATIVE LACTATE 2019-04-09 LACT 1.7 0.4-2.0 LIVER FUNCTION TESTS 2019-04-09 TP 7.2 6.0-8.3 ALB 4.1 3.4-5.0 TBIL 0.2 0.3-1.2 DBIL 0.1 0.0-0.2 ALKP 73 34-104 AST 14 13-39 ALT 14 7-52 UA-DIP PLUS MICRO W/REFLEX 2019-04-09 COL Yellow YELLOW CLARITY Clear CLEAR SG 1.010 1.001-1.035 GLU. Negative NEGATIVE JONAH Negative NEGATIVE KET Negative NEGATIVE BLD Trace NEGATIVE PH 6.0 5.0-8.0 PROT Negative NEGATIVE UROBILINOGEN 0.2 E.U./dL 0.2-1.0 NIT Negative NEGATIVE QUIN Negative NEGATIVE MUC NEGATIVE NEGATIVE BACT NEGATIVE NEGATIVE SHABANA NEG NEG EPI RARE NEG RBCS 1-3 NEG WBCS NEGATIVE NEGATIVE CAST NEG NEG AMORPH NEG NEG RAPID STREP PLATE 2019-04-09 Culture Observations NEGATIVE for Group A, beta hemolytic Strept CULTURE BLOOD 2019-04-09 Culture Observations No growth after 5 days of incubation RAPID STREP SCREEN,AT HOSPITAL 2019-04-[address] Abd/Pelvis w/ ([id number]) 2019-04-09 See Below For Report X Chest 2V 2019-04-09 See Below For Report CBC WITH AUTO DIFF 2019-04-03 WBC 9.4 4.0-12.0 RBC 4.5 4.5-6.0 HGB 13.2 12.5-16.0 HCT 40.6 37.0-47.0 MCV 90 78-100 MCH 29.4 27.0-32.0 MCHC 32.5 32.0-36.0 RDW 12.3 11.0-14.0 PLT 265 140-440 MPV 10.6 7.4-11.0 ANC# 6.7 1.4-7.9 IG# 0.03 0.00-0.10 LY# 1.77 1.50-4.00 MO# 0.55 0.20-0.80 EO# 0.30 0.00-0.70 BA# 0.05 0.00-0.20 NE% 71.3 IG% 0.3 0.0-1.0 LY% 18.8 MO% 5.9 EO% 3.2 BA% 0.5 COMPMET 2019-04-03 GLUC 119 74-106 BUN 8 7-25 CREATS 0.81 0.60-1.20 EGFR >60 >=60 NA 138 136-144 K+ 4.6 3.5-5.1 CL 107 98-110 CO2 26 22-32 CA 8.7 8.6-10.3 TP 6.8 6.0-8.3 ALB 3.8 3.4-5.0 TBIL 0.3 0.3-1.2 DBIL 0.1 0.0-0.2 ALKP 74 34-104 AST 15 13-39 ALT 15 7-52 Path:Excision of Lesion 2019-03-10 Findings: CT Head w/o ([id number]) 2019-03-08 See Below For Report CYTO: PAP SMEAR-Screening 2019-02-05 RESULT X Femur L 2019-01-28 See Below For Report UA-Urine ,IN OFFICE 2019-01-14 RESULT neg RAPID STREP SCREEN,IN OFFICE (2018-11-10 Swab System) Result neg INFLUENZA A/B 2018-11-10 INFLUENZA A NEG INFLUENZA B NEG INFLUENZA A ANTIGEN NEG INFLUENZA B ANTIGEN NEG RAPID STREP PLATE 2018-11-10 Culture Observations NEGATIVE for Group A, beta hemolytic Strept MG Mammo Screening 2019-01-28 See Below For Report UA-Urine ,IN OFFICE 2018-07-09 RESULT neg RAPID STREP SCREEN,IN OFFICE (2 2018-06-05 Swab System) Result neg RAPID STREP PLATE 2018-06-05 Culture Observations NEGATIVE for Group A, beta hemolytic Strept UA-DIP W/REFLEX 2018-02-24 COL Yellow YELLOW CLARITY Clear CLEAR SG 1.020 1.001-1.035 GLU. Negative NEGATIVE JONAH Negative NEGATIVE KET Negative NEGATIVE BLD Negative NEGATIVE PH 7.0 5.0-8.0 PROT Negative NEGATIVE NIT Negative NEGATIVE QUIN Negative NEGATIVE CBC WITH AUTO DIFF 2018-02-24 WBC 8.6 4.0-12.0 RBC 4.4 4.5-6.0 HGB 13.3 12.5-16.0 HCT 39.3 37.0-47.0 MCV 89 78-100 MCH 30.1 27.0-32.0 MCHC 33.8 32.0-36.0 RDW 12.8 11.0-14.0 PLT 261 140-440 MPV 10.0 7.4-11.0 ANC# 5.2 1.4-7.9 IG# 0.0 0.0-0.1 LY# 2.2 1.5-4.0 MO# 0.7 0.2-0.8 EO# 0.5 0.0-0.7 BA# 0.1 0.0-0.2 NE% 61.1 IG% 0.2 0.0-1.0 LY% 25.1 MO% 7.8 EO% 5.4 BA% 0.6 COMPMET 2018-02-24 GLUC 94 74-106 BUN 7 7-18 CREATS 0.85 0.55-1.30 EGFR >60 >=60 NA 138 136-144 K+ 4.3 3.7-5.0 CL 105 98-108 CO2 24 22-32 CA 9.2 8.5-10.1 TP 7.1 6.5-8.1 ALB 3.5 3.4-5.0 TBIL 0.6 0.3-1.2 DBIL 0.1 0.0-0.2 ALKP 85 46-116 AST 19 15-37 ALT 22 13-78 HCG QUALITATIVE SERUM (+/-) 2018-02-24 HCG NEGATIVE NEGATIVE X Hand L 3V 2018-01-13 See Below For Report VITAMIN D 2017-11-21 (25-HYDROXY)-CALCIFEDIOL X Ankle R 3V 2017-07-07 See Below For Report BASEMET 2017-06-19 GLUC 115 74-106 BUN 5 7-18 CREATS 0.79 0.55-1.30 EGFR >60 >=60 NA 138 136-144 K+ 4.1 3.7-5.0 CL 105 98-108 CO2 25 22-32 CA 8.4 8.5-10.1 CBC WITH AUTO DIFF 2017-06-19 WBC 9.5 4.0-12.0 RBC 4.6 4.5-6.0 HGB 13.4 12.5-16.0 HCT 40.7 37.0-47.0 MCV 89 78-100 MCH 29.4 27.0-32.0 MCHC 32.9 32.0-36.0 RDW 12.6 11.0-14.0 PLT 260 140-440 MPV 10.3 7.4-11.0 ANC# 6.3 1.4-7.9 IG# 0.0 0.0-0.1 LY# 1.9 1.5-4.0 MO# 0.6 0.2-0.8 EO# 0.6 0.0-0.7 BA# 0.1 0.0-0.2 NE% 66.7 IG% 0.2 0.0-1.0 LY% 20.1 MO% 6.0 EO% 6.7 BA% 0.5 X Knee R 3V 2017-05-12 See Below For Report CYTO: PAP SMEAR W/Reflex HPV (3yr regimen) RESULT Pap smear is a scree Thin Prep(R) Health Care Social Worker s high-risk HPV test s liquid based ThinPr RAPID STREP SCREEN,IN OFFICE (2 2017-02-05 Swab System) Result neg RAPID STREP PLATE 2017-02-05 Culture Observations Negative for group A Strep. Direct Exam Negative first day FP-UA TEST CPT-46232 2017-01-22 ([id number]) RESULT NEG CBC WITH AUTO DIFF 2016-09-16 WBC 8.4 4.0-12.0 RBC 4.4 4.5-6.0 HGB 13.2 12.5-16.0 HCT 38.6 37.0-47.0 MCV 89 78-100 MCH 30.3 27.0-32.0 MCHC 34.2 32.0-36.0 RDW 12.4 11.0-14.0 PLT 271 140-440 MPV 9.9 7.4-11.0 ANC# 5.2 1.4-7.9 IG# 0.0 0.0-0.1 LY# 2.0 1.5-4.0 MO# 0.8 0.2-0.8 EO# 0.4 0.0-0.7 BA# 0.1 0.0-0.2 NE% 62.1 IG% 0.2 0.0-1.0 LY% 23.7 MO% 9.3 EO% 4.3 BA% 0.6 COMPMET 2016-09-16 GLUC 102 74-106 BUN 13 7-18 CREATS 0.83 0.55-1.30 EGFR >60 >=60 NA 140 136-144 K+ 4.0 3.7-5.0 CL 105 98-108 CO2 24 22-32 CA 8.2 8.5-10.1 TP 7.4 6.5-8.1 ALB 3.4 3.4-5.0 TBIL 0.4 0.3-1.2 DBIL 0.1 0.0-0.2 ALKP 90 46-116 AST 18 15-37 ALT 27 13-78 D-DIMER 2016-09-16 DDIM 201 <=500 TROPONIN I 2016-09-16 TNI <0.02 0.00-0.06 EKG to be done at hospital 2016-09-16 X Chest 2V 2016-09-16 See Below For Report X Scapula L 2016-05-10 See Below For Report SENSITIVITY ORGANISM 1 2016-05-09 Ampicillin <=2 Ampicillin/Sulbactam <=2 Piperacillin/Tazobactam <=4 Cefazolin <=4 Ceftazidime <=1 Ceftriaxone <=1 Cefepime <=1 Doripenem <=0.12 Ertapenem <=0.5 Amikacin 16 Gentamicin 4 Tobramycin 8 Ciprofloxacin <=0.25 Levofloxacin <=0.12 Nitrofurantoin <=16 Trimethoprim/Sulfa <=20 UA DIPSTICK ONLY-DIAGNOSTIC 2016-05-09 Color yellow Clarity clear Specific [place] 1.025 Glucose. neg Bilirubin neg Ketones neg Blood neg PH 5.5 Protein neg Urobilinogen 0.2 Nitrite pos Leukocytes trace UA-COLONY COUNT ONLY 2016-05-09 Isolate 1 Escherichia Coli FP-UA TEST CPT-26651 2016-05-09 ([id number]) RESULT neg UA-Urine ,IN OFFICE 2016-05-08 RESULT neg UA DIPSTICK ONLY-DIAGNOSTIC 2016-02-13 Color yellow Clarity clear Specific [place] 1.020 Glucose. neg Bilirubin neg Ketones neg Blood trace-intact PH 6.0 Protein neg Urobilinogen 0.2 Nitrite neg Leukocytes trace UA-COLONY COUNT ONLY 2016-02-13 BASEMET 2016-01-25 GLUC 123 74-106 BUN 8 7-18 CREATS 0.96 0.55-1.30 EGFR >60 >=60 NA 135 136-144 K+ 3.7 3.7-5.0 CL 101 98-108 CO2 29 22-32 CA 8.0 8.5-10.1 CBC WITH AUTO DIFF 2016-01-25 WBC 10.1 4.0-12.0 RBC 4.4 4.5-6.0 HGB 13.5 12.5-16.0 HCT 37.9 37.0-47.0 MCV 86 78-100 MCH 30.5 27.0-32.0 MCHC 35.6 32.0-36.0 RDW 13.1 11.0-14.0 PLT 239 140-440 MPV 9.6 7.4-11.0 ANC# 8.5 1.4-7.9 IG# 0.0 0.0-0.1 LY# 0.7 1.5-4.0 MO# 0.8 0.2-0.8 EO# 0.1 0.0-0.7 BA# 0.0 0.0-0.2 NE% 84.1 IG% 0.3 0.0-1.0 LY% 6.5 MO% 8.3 EO% 0.7 BA% 0.4 UA-DIP PLUS MICRO W/REFLEX 2016-01-25 COL Yellow YELLOW CLARITY Clear CLEAR SG 1.025 1.001-1.035 GLU. Negative NEGATIVE JONAH Negative NEGATIVE KET Negative NEGATIVE BLD Moderate NEGATIVE PH 5.5 5.0-8.0 PROT Negative NEGATIVE UROBILINOGEN 0.2 E.U./dL 0.2-1.0 NIT Negative NEGATIVE QUIN Negative NEGATIVE MUC NEGATIVE NEGATIVE BACT NEGATIVE NEGATIVE SHABANA NEG NEG EPI RARE NEG RBCS 1-3 NEG WBCS NEGATIVE NEGATIVE CAST NEG NEG AMORPH NEG NEG X Acute Abdominal Series 2016-01-25 See Below For Report Path:Cervical biopsy 2016-01-19 Result FP-HEPATITIS C ANTIBODY (state) 2015-12-08 CPT-54266 ([id number]) HEP C-AB RESULT neg FP-RPR,SYPHILIS 2015-12-08 TEST,QUALITATIVE (state) CPT-61144 (67447) RPR RESULT non reactive FP-HSV 1-2,SERUM,(state) CPT 2015-12-08 06038,21259 (72780,51072) HSV1 RESULT pos HSV2 RESULT neg CYTO: HPV ASR 2015-12-08 HPV HIGH RISK positive FP-UA TEST CPT-66246 2015-12-08 (07422) RESULT neg FP-HIV 1&2 PLUS O ANTIBODY,ORAL 2015-12-08 OR SERUM(state) CPT-68649(92410) HIV1 RESULT neg HIV2 RESULT neg FP-CYTO Pap CPT 81497 (73428) 2015-12-08 FP-UA GONORRHEA (state) RESULT FP-CT/GC SWAB OR UA,STATE,CPT 2015-12-08 41966,21805 ([id number],[id number]) CT RESULT neg GC RESULT neg CBC WITH AUTO DIFF 2015-12-07 WBC 4.4 4.0-12.0 RBC 4.7 4.5-6.0 HGB 13.9 12.5-16.0 HCT 39.7 37.0-47.0 MCV 85 78-100 MCH 29.7 27.0-32.0 MCHC 35.0 32.0-36.0 RDW 13.0 11.0-14.0 PLT 210 140-440 MPV 9.7 7.4-11.0 ANC# 2.3 1.4-7.9 IG# 0.0 0.0-0.1 LY# 1.2 1.5-4.0 MO# 0.7 0.2-0.8 EO# 0.1 0.0-0.7 BA# 0.0 0.0-0.2 NE% 52.1 IG% 0.2 0.0-1.0 LY% 27.8 MO% 16.5 EO% 2.7 BA% 0.7 COMPMET 2015-12-07 GLUC 89 74-106 BUN 10 7-18 CREATS 0.75 0.55-1.30 EGFR >60 >=60 NA 138 136-144 K+ 3.2 3.7-5.0 CL 104 98-108 CO2 25 22-32 CA 8.8 8.5-10.1 TP 7.5 6.5-8.1 ALB 3.6 3.4-5.0 TBIL 0.2 0.3-1.2 DBIL 0.1 0.0-0.2 ALKP 81 46-116 AST 24 15-37 ALT 18 13-78 INFLUENZA A/B 2015-12-07 UA-DIP PLUS MICRO W/REFLEX 2015-12-07 COL Yellow YELLOW CLARITY Clear CLEAR SG 1.020 1.001-1.035 GLU. Negative NEGATIVE JONAH Negative NEGATIVE KET Negative NEGATIVE BLD Trace NEGATIVE PH 6.0 5.0-8.0 PROT Negative NEGATIVE UROBILINOGEN 0.2 E.U./dL 0.2-1.0 NIT Negative NEGATIVE QUIN Negative NEGATIVE MUC NEGATIVE NEGATIVE BACT NEGATIVE NEGATIVE SHBAANA NEG NEG EPI 2+ NEG RBCS RARE NEG WBCS NEGATIVE NEGATIVE CAST NEG NEG AMORPH NEG NEG RAPID STREP PLATE 2015-09-28 Culture Observations Negative for group A Strep. Direct Exam Negative first day RAPID STREP SCREEN,AT HOSPITAL 2015-09-28 RSS NEG NEG X Ribs R w/PA chest xray 2015-07-23 See Below For Report UA-Urine ,IN OFFICE 2015-06-06 RESULT neg UA-DIP W/REFLEX 2015-05-29 COL Yellow YELLOW CLARITY Clear CLEAR SG 1.010 1.001-1.035 GLU. Negative NEGATIVE JONAH Negative NEGATIVE KET Negative NEGATIVE BLD Negative NEGATIVE PH 5.5 5.0-8.0 PROT Negative NEGATIVE NIT Negative NEGATIVE QUIN Negative NEGATIVE CBC WITH AUTO DIFF 2015-05-29 WBC 7.3 4.0-12.0 RBC 4.1 4.5-6.0 HGB 12.7 12.5-16.0 HCT 36.5 37.0-47.0 MCV 88 78-100 MCH 30.8 27.0-32.0 MCHC 34.8 32.0-36.0 RDW 12.5 11.0-14.0 PLT 257 140-440 MPV 10.3 7.4-11.0 ANC# 3.9 1.4-7.9 IG# 0.0 0.0-0.1 LY# 2.2 1.5-4.0 MO# 0.6 0.2-0.8 EO# 0.4 0.0-0.7 BA# 0.1 0.0-0.2 NE% 54.1 IG% 0.1 0.0-1.0 LY% 30.7 MO% 8.5 EO% 5.8 BA% 0.8 COMPMET 2015-05-29 GLUC 142 74-106 BUN 7 7-18 CREATS 0.80 0.60-1.30 EGFR >60 >=60 NA 138 136-144 K+ 3.4 3.7-5.0 CL 103 98-108 CO2 27 22-32 CA 8.6 8.5-10.1 TP 7.1 6.5-8.1 ALB 3.8 3.4-5.0 TBIL 0.4 0.3-1.2 DBIL 0.1 0.0-0.2 ALKP 95 46-116 AST 17 15-37 ALT 22 13-78 UA-Urine ,AT HOSPITAL 2015-05-29 HCG-U NEGATIVE NEGATIVE TSH 2015-05-29 TSH 0.911 0.360-4.800 X Chest 2V 2015-05-29 See Below For Report UA-Urine ,IN OFFICE 2015-02-08 RESULT neg CBC WITH AUTO DIFF 2014-12-01 WBC RBC HGB HCT MCV MCH MCHC RDW PLT MPV NE% LY% MO% EO% BA% ANC IRON 2014-11-30 FE 166 38-175 FERRITIN 2014-11-30 FERR 45.0 8.0-388.0 TIBC 2014-11-30 TIBC 283.0 250.0-450.0 HEPATITIS ACUTE PROFILE 2014-11-30 HEP A AB, IGM Negative Negative HEP B SURFACE ANTIGEN Negative Negative HEP B CORE IGM AB Negative Negative RAPID STREP SCREEN,IN OFFICE (2 2014-06-03 Swab System) Result neg RAPID STREP PLATE 2014-06-03 Direct Exam Negative first day X Thoracic Spine 2V 2014-04-26 See Below For Report X Thoracic Spine 3V ([facility]) 2014-04-26 Image Accessible X C-Spine 4 or more Views 2014-04-19 See Below For Report MR Brain w/o (*[id number]) 2014-04-12 See Below For Report CBC WITH AUTO DIFF 2014-04-04 WBC 9.3 4.0-12.0 RBC 4.3 4.5-6.0 HGB 13.1 12.5-16.0 HCT 37.6 37.0-47.0 MCV 88 78-100 MCH 30.6 27.0-32.0 MCHC 34.8 32.0-36.0 RDW 12.6 11.0-14.0 PLT 250 140-440 MPV 10.0 7.4-11.0 NE% 61.9 45.0-75.0 LY% 24.0 20.0-50.0 MO% 10.8 2.0-10.0 EO% 3 0-6 BA% 1 0-1 ANC 5.8 1.4-7.9 COMPMET 2014-04-04 GLUC 79 74-106 BUN 9 7-18 CREATS 0.77 0.60-1.30 EGFR >60 >=60 NA 142 136-144 K+ 4.2 3.7-5.0 CL 107 98-108 CO2 29 22-32 CA 8.6 8.5-10.1 TP 7.6 6.5-8.1 ALB 3.9 3.4-5.0 TBIL 0.2 0.3-1.2 DBIL 0.1 0.0-0.2 ALKP 96 46-116 AST 13 15-37 ALT 19 13-78 MAGNESIUM 2014-04-04 MG 2.1 1.8-2.5 MR Cervical Spine w/o (*[id number]) 2014-04-26 See Below For Report HIV 1/2 ANTIBODIES 2014-03-29 HIV 1/0/2 ABS INDEX VALUE <1.00 <1.00 HIV 1/0/2 ABS QUAL Non Reactive Non Reactive GENPROBE 2014-03-29 Chlamydia trachomatis,DANIELE Negative Negati ve Neisseria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 [address] SELF PAY self LEID[place] [id number] 3 [place] [address] INSURANCE MEDICAID XEROS MEDICAID self LEID[place] [id number] [place] UNIT [facility] SELF PAY [address] SELF PAY self LEID[place] [id number] [place] [address] INSURANCE WORKERS PA WORKERS LEID[place] [id number] COMPENSATI COMPENSATI NISHANT ON ON zzFAMILY [address] [place] zzFAMILY self LEIDY [id number] PLANNING-L NISHANT PLANNING-L NISHANT EVEL [address] [address] [address] [address] [place] self LEIDY [id number] [id number] [facility] [address] SELF PAY self LEID[place] [id number] 3 [place] [address] SELF PAY self LEID[place] [id number] 3 [place] [address] INSURANCE zzFAMILY [address] [place] zzFAMILY self LEIDY [id number] PLANNING NISHANT PLANNING NISHANT [facility] [address] zzFAMILY [address] [place] zzFAMILY self LEIDY [id number] PLANNING-L NISHANT PLANNING-L NISHANT EVEL 1 [facility] [place] [address] [address] [place] self LEIDY [id number] [id number] [facility] [address] MEDICAID XEROS MEDICAID self LEIDY [id number] [place] UNIT [facility] [address] zzFAMILY [address] [place] zzFAMILY self LEIDY [id number] PLANNING NISHANT PLANNING NISHANT [facility] [address] SELF PAY self LEIDY [id number] 3 [place] [address] INSURANCE [facility] PO [address]OX [facility] self LEIDY [id number] 3 [id number] NETWORK 81102 NETWORK NISHANT [facility] [address] SELF PAY self LEIDY [id number] 3 [place] [address] INS MEDICAID XEROS MEDICAID self LEIDY [id number] [place] UNIT [facility] [address] SELF PAY self LEIDY [id number] 3 GENERAL [facility] [place] [address] INS MEDICAID EDS MEDICAID self LEIDY [id number] [address] [place] NISHANT JAI [facility] [id number] AMBETTER PO [address]OX [place] self LEIDY [id number] [id number] NISHANT [facility] [address] [facility] PO BOX [facility] self LEIDY [id number] 3 [id number] NETWORK 80328 NETWORK NISHANT [facility] [address] MEDICAID XEROS MEDICAID self LEIDY [id number] [place] UNIT [facility] [address] WORKERS PA WORKERS LEIDY [id number] COMPENSATI COMPENSATI NISHANT ON ON zzFAMILY [address] [place] zzFAMILY self LEIDY [id number] PLANNING-L NISHANT PLANNING-L NISHANT EVEL [address] [facility] [place] [address] SELF PAY self LEIDY [id number] 3 [place] [address] SELF PAY self LEIDY [id number] 3 [place] [address] INSURANCE zzFAMILY [address] [place] zzFAMILY self LEIDY [id number] PLANNING-L NISHANT PLANNING-L [place]ISHANT [place] [address] [place] [address] MEDICAID XEROS MEDICAID self LEIDY [id number] [place] UNIT [facility] [address] MEDICAID EDS MEDICAID self LEIDY [id number] 46 [place] N[place] JAI [facility] [id number] [facility] PO BOX [facility] self LEIDY [id number] HEALTHY 4060 HEALTHY NISHANT [facility]IES [facility] [address] SELF PAY self LEIDY [id number] 3 [place] [address] INSURANCE WORKERS PA WORKERS LEID[place] [id number] COMPENSATI COMPENSATI NISHANT ON ON SELF PAY [address] SELF PAY self LEIDY [id number] 3 [place] [address] INSURANCE [facility] PO BOX [facility] self LEDIY [id number] 3 [id number] NETWORK 19964 NETWORK NISHANT [facility] [address] BL[address]OSS [address] BLUE CROSS self LEIDY [id number] [facility] [address] [address] [place] [address] SELF PAY self LEIDY [id number] 3 [place] [address] INSURANCE MEDICAID XEROS MEDICAID self LEIDY [id number] [place] UNIT [facility] SELF PAY [address] ST[address] SELF PAY self LEIDY [id number] 3 AFTER [place] [address] CROSS [facility] PO BOX [facility] self LEIDY [id number] NETWORK 03771 NETWORK [facility] [address] [facility] PO [address]OX [facility] self LEIDY [id number] NETWORK 07994 NETWORK NISHANT [facility] [address] zzFAMILY [address] [place] zzFAMILY self LEIDY [id number] PLANNING NISHANT PLANNING NISHANT [facility] [address] MEDICAID XEROS MEDICAID self LEIDY [id number] [place] UNIT [facility] SELF PAY [address] SELF PAY self LEIDY [id number] 3 [place] [address] INSURANCE BLUE CROSS [address] BLUE CROSS self LEIDY [id number] [facility] [address] [address] [place] [address] MEDICAID XEROS MEDICAID self LEIDY [id number] [place] UNIT [facility] zzFAMILY [address] [place] zzFAMILY self LEIDY [id number] PLANNING-L NISHANT PLANNING-L [place]ISH[place] [address] [place] [address] [facility] PO BOX [facility] self LEIDY [id number] HEALTHY 4060 HEALTHY N[facility] [address] MEDICAID XEROS MEDICAID self LEIDY [id number] [place] UNIT [facility] SELF PAY [address] SELF PAY self LEIDY [id number] 3 GENER[facility] [place] [address] SELF PAY self LEIDY [id number] 3 [place] [address] INS MEDICAID XEROS MEDICAID self LEIDY [id number] [place] UNIT [facility] SELF PAY [address] ST[address] SELF PAY self LEIDY [id number] 3 GENER[facility] [place] [address] INS [place] PO [address] [place] self LEIDY [id number] N[place] [id number] MEDICAID XEROS MEDICAID self LEIDY [id number] [place] UNIT [facility] zzFAMILY [address] [place] zzFAMILY self LEIDY [id number] PLANNING NISHANT [facility]ING [facility] [address] BLUE [address]OSS [address] BLUE CROSS self LEIDY [id number] [facility] [place] [place] [address] [facility] PO BOX [facility] self LEIDY [id number] HEALTHY 4060 HEALTHY NISHANT [facility] [address] MEDICAID XEROS MEDICAID self LEIDY [id number] [place] UNIT [facility] SELF PAY [address] SELF PAY self LEIDY [id number] 3 [place] [address] SELF PAY self LEIDY [id number] 3 [place]AL [place] [address] SELF PAY self LEIDY [id number] 3 [place] [facility] [address] SELF PAY self LEIDY [id number] 3 [place] [address] SELF PAY self LEIDY [id number] 3 [place] [address] INSURANCE [facility] PO BOX [facility] self LEIDY [id number] HEALTHY 4060 HEALTHY NISH[place] [facility] [address] SELF PAY self LEIDY [id number] 3 [place] [address] INSURANCE [place] [address] [place] self LEIDY [id number] NISHANT V[place] [id number] zzFAMILY [address] [place] zzFAMILY self LEIDY [id number] PLANNING-L NISHANT PLANNING-L NISHANT EVEL 1 [facility] [place] [address] [address] BLUE CROSS self LEIDY [id number] [facility] N[place] [address] [place] [address] SELF PAY self LEIDY [id number] 3 [place] [address] INSURANCE [place] [address] [place] self LEIDY [id number] [facility] [id number] [address] SELF PAY self LEIDY [id number] 3 [facility] [place] [address] INS AMBETTER PO [address] [place] self LEIDY [id number] [id number] [facility] [address] zzFAMILY [address] [place] zzFAMILY self LEIDY [id number] PLANNING-L NISHANT PLANNING-L NISHANT EVEL [address] [facility] [place] [address] SELF PAY self LEIDY [id number] 3 [place] [address] INSURANCE AMBETTER PO [address] [place] self LEIDY [id number] [facility] [address] MEDICAID XEROS MEDICAID self LEIDY [id number] [place] UNIT [facility] [id number] zzFAMILY [address] [place] zzFAMILY self LEIDY [id number] PLANNING NISHANT PLANNING NISHANT [facility] [address] BLUE CROSS [address] BLUE CROSS self LEIDY [id number] PATH[facility] NISHANT 9 [facility] [address] MEDICAID XEROS MEDICAID self LEIDY [id number] [place] UNIT [facility] [address] zzFAMILY [address] [place] zzFAMILY self LEIDY [id number] PLANNING NISHANT PLANNING NISHANT [facility] [address] SELF PAY self LEIDY [id number] 3 [place] [address] SELF PAY self LEIDY [id number] 3 [facility] [place] [address] SELF PAY self LEIDY [id number] [place] [address] INSURANCE zzFAMILY [address] [place] zzFAMILY self LEIDY [id number] PLANNING NISHANT PLANNING NISHANT [facility] [address] BLUE CROSS [address] BLUE CROSS self LEIDY [id number] [facility] [address] [place] [address] SELF PAY self LEIDY [id number] 3 [facility] [place] [address] INS [place] PO [address] [place] self LEIDY [id number] [facility] [id number] [address] SELF PAY self LEIDY [id number] 3 AFTER [place] [address] CROSS AMBETTER PO [address]OX [place] self LEIDY [id number] [id number] [facility] [address] AMBETTER PO BOX [place] self LEIDY [id number] [id number] [facility] [address] [facility] PO [address]OX [place] self LEIDY [id number] NETWORK [id number] NETWORK NISHANT [facility] [id number] SELF PAY self [place] [id number] [place] [address] INSURANCE zzFAMILY [address] zzFAMILY self [place] [id number] PLANNING-L NISHANT PLANNING-L NISHANT EVEL [address] [facility] [place] [address] MEDICAID EDS MEDICAID self [place] [id number] [place] JAI [facility] [id number] MEDICAID XEROS MEDICAID self [place]ID[place] [id number] [place] UNIT [facility] [id number] SELF PAY self LEID[place] [id number] [facility]AL [facility] [place] [address] [place] MEDICAID EDS MEDICAID self LEID[place] [id number] [place] NISHANT JAI [facility] [id number] SELF [address] SELF PAY self LEIDY [id number] 3 [place] [address] INS zzFAMILY 8 [place] zzFAMILY self LEIDY [id number] PLANNING-L NISHANT PLANNING-L [place] [address] [place] [address] MEDICAID XEROS MEDICAID self [place] [id number] [place] UNIT [facility] [id number] SELF PAY self LEID[place] [id number] 3 GENERAL [facility] [place] [address] INS MEDICAID XEROS MEDICAID self LEID[place] [id number] [place] UNIT [facility] [id number] zzFAMILY [address] [place] zzFAMILY self LEIDY [id number] PLANNING NISHANT PLANNING NISHANT [facility] [id number] SELF PAY self LEID[place] [id number] [place] [address] INSURANCE MEDICAID XEROS MEDICAID self LEID[place] [id number] [place] N[place] UNIT [facility] [id number] zzFAMILY [address] [place] zzFAMILY self LEIDY [id number] PLANNING NISHANT PLANNING NISHANT [facility] [id number] [facility] [address] [facility] self LEIDY [id number] NETWORK [id number] NETWORK NISHANT [facility] [id number] SELF PAY self LEID[place] [id number] [place] [address] SELF PAY self LEIDY [id number] 3 [facility] [place] [address] INS AMBETTER [address] AM[place]ET[place] self LEIDY [id number] NISHANT [facility] [address] zzFAMILY [address] [place] zzFAMILY self LEIDY [id number] PLANNING NISHANT PLANNING NISHANT [facility] [id number] SELF PAY self LEID[place] [id number] 3 [place] [address] INSURANCE zzFAMILY [address] zzFAMILY self LEIDY [id number] PLANNING NISHANT PLANNING NISHANT [facility] [id number] SELF PAY self LEIDY [id number] 3 [facility]AL [facility] [place] [address] INS BLUE CROSS [address] BLUE CROSS self LEIDY [id number] [facility] [address] [place] [address] [employer] LEIDY [id number] COMPENSATI COMPENSATI NISHANT ON ON SELF PAY ANY STRE[address] SELF PAY self LEIDY [id number] 3 AFTER [place] [address] CROSS zzFAMILY [address] [place] zzFAMILY self ELIDY [id number] PLANNING-L NISHANT PLANNING-L NISHANT EV [address] [facility] [address] [place] [address] SELF PAY self LEIDY [id number] [place] [address] INS HARVARD [address] [place] self LEIDY [id number] N[place] [id number] AMBETTER PO [address] AMBETTER self LEIDY 1985 [id number] NISHANT [facility] [address] SELF PAY self LEIDY [id number] 3 [place]AL [place] [address] INS zzFAMILY [address] zzFAMILY self LEIDY 1985 [id number] PLANNING NISHANT PLANNING NISHANT [facility] [address] zzFAMILY 8 [address] zzFAMILY self LEIDY 1986 [id number] PLANNING-L NISHANT PLANNING-L NISHANT EVEL 1 [facility] [place] [address] zzFAMILY 8 [place] zzFAMILY self LEIDY 1986 [id number] PLANNING-L NISHANT PLANNING-L NISHANT EVEL [address] [facility] [place] [address] zzFAMILY [address] zzFAMILY self LEIDY 1986 [id number] PLANNING-L NISHANT PLANNING-L NISHANT EVEL 1 [facility] [place] [address] BLUE CROSS [address] BLUE CROSS self LEIDY [id number] [facility] [address] [place] [address] MEDICAL (GENERAL) HISTORY Type Description Date Medical History pseudoseizures Type 2 rapid heart beat Medical History 04/15/13 Cardiac Stress Echo: 1)Neg. for ischemia; 2)Good Left ventricular Function; 3)No S ignificant Valvular Abnormalities; 4) no exercise i nduced dysrythmias; 5)Near Syncope at leo hea rt rate at 160. the max BP was 150/70 and ther was approx. 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 Medical History acute cervicitis and squamous metaplasia with reactive atypia Medical History follicular cervicitis Medical History hyperkeratosis Medical History paraetatosis Medical History Strain of peroneal tendon of right foot, initial encounter Medical History Skin anomaly Surgical History hernia umbilical age 9 Surgical History wisdom teeth age 22 Surgical History uvulopalatopharyngoplasty 2010 Surgical History polyp removal, cervix, Leep 01/2016 Surgical History LLETZ Large Loop Excision of the Transfo rmational 02/20/16 Zone - neg for significant pathology - h ad cervicitis, reactive atypia, metaplasia Surgical History Tooth extraction, [facility], [place] 04/03 018 Hospitalization History [facility] [place] for seizure x2
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
--- NOTE | 2020-11-28 08:25 | DI.RAD_ITS ---
EXAM: XR SHOULDER LT COMPLETE 2+V CLINICAL HISTORY: trauma, left shoulder pain. TECHNIQUE: 2D digital imaging was performed. COMPARISON: Prior left shoulder x-rays 07/10/2012 FINDINGS: There is no evidence of fracture or dislocation. No abnormal soft tissue calcifications. The glenoh umeral and AC joints appear unremarkable. Subacromial space is not diminished. Bone density is norm al. IMPRESSION: No fracture evident. DATA REPOSITORY: RADIATION DOSE DELIVERED:
--- NOTE | 2020-11-28 08:33 | NUR.NOTE ---
statesI am not , I'm having my period now. is on BC pill.Nursing Note:
[2020-11-28] MEDS: Ibuprofen 400 MG TAB PO (09:00)
[2020-11-28 09:20] VITALS: BP 113/82; PULSE 66; RESP 16; TEMP 36.3; O2SAT 100
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
== END 2020-11-28 09:52 | disposition home or self-care (01) ==
PROVIDERS: Emergency Provider Student in an Organized Health Care Education/Training Program; PCP Family Medicine
DX: S49.82XA Other specified injuries of left shoulder and upper arm, initial encounter (principal); Y35.813A Legal intervention involving manhandling, suspect injured, initial encounter
CPT/HCPCS: 99283; 73030

== ENCOUNTER 2022-04-19 12:35 | Emergency (ER) | payer MEDICAID, SELFPAY ==
[2022-04-19 12:44] VITALS: BP 133/84; PULSE 77; RESP 16; TEMP 36.7; O2SAT 100
--- NOTE | 2022-04-19 12:47 | ED.GENADUL_ITS ---
Discharge Plan Disposition Patient Disposition: HOME Condition: Improving Discharge Details Clinical Impression: Bee sting reaction Primary Care Provider: Michelle Bullock ED Provider: Reagan Salazar Home Meds and New Rx's Prescriptions: New prednisone 20 mg tablet 20 mg PO BID 3 Days Qty: 6 0RF Continued multivitamin tablet 1 tab PO DAILY propranolol 60 mg capsule,extended release 24 hr 60 mg PO DAILY cholecalciferol (vitamin D3) 2,000 unit capsule 1,000 unit PO DAILY norgestimate-ethinyl estradiol [Ortho Tri-Cyclen (28)] 0.18/0.215/0.25 mg-35 mcg (28) Tablet 1 tab PO DAILY paroxetine HCl 20 mg tablet 20 mg PO DAILY Label Comments: TAKE 1 TABLET BY MOUTH DAILY gabapentin 100 mg capsule 100 mg PO HS Label Comments: TAKE 1 CAPSULE BY MOUTH AT BEDTIME FOR 3 DAYS THEN INCREASE TO 1 CAPSULE TWICE A DAY THEN 1 CAPSULE THREE TIMES A DAY SLOWLY OVER 2 WEEKS MOTRIN IB 200 MG tablet 3 tab PO Q6H PRN PRNQty: 0 0RF Discharge Instructions Instructions: Insect Bite or Sting (ED) Additional Instructions: Take prednisone as prescribed twice daily until finished. May use [id number] Pepcid as needed for its antihistamine properties. Cool compress will reduce discomfort. Return for any acute concern. Medical Decision Making 37-year-old female presents from home complaining of bee sting to the right arm. She feels short of breath but has not been wheezing. She did not administer any medications. She arrives alert and interactive. Given prednisone and Pepcid due to history of allergy to Benadryl. She is observed. HPI General Mode of arrival: ambulatory . Date/Time Provider Initiated Documentation: 04/19/22 12:43 . Limitations to Documentation: no limitations . Information obtained by: patient . History of Present Illness 37 year old F presents to the emergency department with the chief complaint of Right upper extremity bee sting, described as moderate, Quality is described as dull, and is localized to the right and upper extremity. Patient started experiencing this minute(s) No relieving factors improve symptom(s), No exacerbating factors reported . Patient notes shortness of breath; denies cough and syncope. Patient did receive the following treatments prior to arrival, none Related Data Home Medications Medication Instructions Recorded Confirmed cholecalciferol (vitamin D3) 50 1,000 unit PO DAILY 07/02/18 04/19/22 mcg (2,000 unit) capsule multivitamin 1 tab PO DAILY 07/02/18 04/19/22 propranolol 60 mg capsule,24 60 mg PO DAILY 07/02/18 04/19/22 hr,extended release norgestimate-ethinyl estradiol 1 tab PO DAILY 02/13/20 04/19/22 0.18 mg/0.215mg/0.25mg-35 mcg(28)tablet (Ortho Tri-Cyclen (28)) Motrin Ib 3 tab PO Q6H PRN PRN ##0 11/03/20 11/28/20 gabapentin 100 mg capsule 100 mg PO HS 11/03/20 04/19/22 paroxetine HCl 20 mg tablet 20 mg PO DAILY 11/03/20 04/19/22 prednisone 20 mg tablet 20 mg PO BID 3 days #6 tabs 04/19/22 Previous Rx's Medication Instructions Recorded Motrin Ib 3 tab PO Q6H PRN PRN ##0 11/03/20 prednisone 20 mg tablet 20 mg PO BID 3 days #6 tabs 04/19/22 Allergies Allergy/AdvReac Type Severity Reaction Status Date / Time hydroxyzine Allergy Intermediate HIVES Verified 04/19/22 12:47 hydrocodone bitartrate Allergy RASH/HIVES Unverified 04/19/22 12:47 [From Vicodin] menthol [From Icy Hot] Allergy Unverified 04/19/22 12:47 methyl salicylate Allergy Unverified 04/19/22 12:47 [From Icy Hot] fluoxetine [From Prozac] AdvReac Mild CRIES Verified 04/19/22 12:47 acetaminophen AdvReac VOMITING Unverified 04/19/22 12:47 diphenhydramine HCl AdvReac VOMITING Unverified 04/19/22 12:47 [From Benadryl] General Stated Complaint: Allergic BENJI: 3 Review of Systems Narrative: 6 systems reviewed and otherwise negative. No loss of consciousness. PFSH All Active Problems (Updated 04/19/22 @ 12:59 by Reagan Salazar MD) Abdominal pain (Acute) Left shoulder pain (Acute) Bee sting reaction (Acute) Contraceptive surveillance, unspecified (Acute 12/30/12) Medical History (Updated 04/19/22 @ 12:59 by Reagan Salazar MD) Depression Drug abuse Migraine Seizure disorder Surgical History Excision, Lipoma L upper back Dr Sotelo 2001 extraction wisdom teeth age 22yrs H/O cervical polypectomy hernia repair ? type age 9yo Family History Father Unknown family medical history Mother Cancer Paternal Uncle Heart disease Nephew Congenital malformation of brain Maternal Aunt Mental retardation Other Diabetes Hyperlipidemia Mental disorder Personal history of malignant neoplasm Social History Smoking/Tobacco Use Status: Never Smoking risk assessment performed?: Yes Alcohol Intake: never Drug use: Current Sobriety Substance use type: does not use and former substance user Details: Clean x 14 years. Household members: spouse Do you feel safe at home: Yes Exam Narrative Exam Narrative: GEN: awake, alert, oriented 3. Pleasant, well groomed, interactive. HEAD: Normocephalic, atraumatic ENT: Mucous membranes moist, oropharynx unremarkable, External ear exam unremarkable EYES: PERRL, EOMI NECK: Full ROM, no LALA, no menigismus CHEST/RESP: Nontender, clear to auscultation bilateral, no wheeze/rhonchi/rales CARDIOVASCULAR: RRR, no murmur, rub ese. 2+ Rad pulse bilateral ABDOMEN: Soft, nontender, no mass. +Bowel sounds EXT: Full ROM, no edema, trace erythema right hand palmar aspect. Neuro: Grossly normal neurologic exam, conversant, interactive. Psych: Speech fluent, thoughts congruent, affect normal Course Vital Signs Vital signs: Vital Signs Temperature 36.7 C 04/19/22 12:44 Pulse 77 04/19/22 12:44 Respiratory Rate 16 04/19/22 12:44 Blood Pressure 133/84 04/19/22 12:44 Pulse Oximetry 100 04/19/22 12:44 Temperature 36.7 C 04/19/22 12:44 Temperature Source Temporal Artery Scan 04/19/22 12:44 Pulse 77 04/19/22 12:44 Respiratory Rate 16 04/19/22 12:44 Blood Pressure 133/84 04/19/22 12:44 Blood Pressure Position Sitting 04/19/22 12:44 Pulse Oximetry 100 04/19/22 12:44 Oxygen Delivery Method Room Air 04/19/22 12:44 Oxygen Flow Rate 0 04/19/22 12:44 Pain Level 8 04/19/22 12:44
[2022-04-19] MEDS: predniSONE 20 MG TAB 60 MG PO (12:52)
[2022-04-19] MEDS: Famotidine 20 MG TAB 40 MG PO (12:52)
[2022-04-19 14:32] VITALS: BP 133/84; PULSE 77; RESP 16; TEMP 36.7; O2SAT 100
== END 2022-04-19 14:31 | disposition home or self-care (01) ==
LOC: ER 13:15
PROVIDERS: Emergency Provider Emergency Medicine; PCP Family Medicine
DX: T63.441A Toxic effect of venom of bees, accidental (unintentional), initial encounter (principal); R06.02 Shortness of breath; Z88.8 Allergy status to other drugs, medicaments and biological substances
CPT/HCPCS: 99283; 99284; J7512

== ENCOUNTER 2023-11-13 17:45 | Emergency (ER) | payer MEDICAID, SELFPAY ==
[2023-11-13 17:44] VITALS: BP 134/94; PULSE 95; RESP 20; TEMP 36.7; O2SAT 100
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
[2023-11-13] MEDS: Normal Saline - Diluent 50 ML VIAL IJ (18:09)
[2023-11-13] MEDS: Normal Saline Flush 10 ML SYR IVP (18:10)
[2023-11-13 18:12] LABS: Abs Immature Grans 0.04 10^3/uL (0.0-0.06); Absolute Basophil Count 0.08 10^3/uL (0.0-0.2); Absolute Eosinophil Count 0.25 10^3/uL (0.0-0.7); Absolute Monocyte Count 0.75 10^3/uL (0.1-0.8); Absolute Neutrophil Count 5.96 10^3/uL (1.2-6.7); Basophils % 0.9; Eosinophils % 2.7; HCT 37.8 % (36.0-46.0); HGB 12.7 g/dL (11.2-15.7); Immature Grans % 0.4; Lymphocytes % 22.9; MCH 30.1 pg (27.0-33.0); MCHC 33.6 % (32.0-36.0); MCV 90 fL (80-95); MPV 9.4 fL (8.0-11.0); Monocytes % 8.2; Neutrophils % 64.9; Platelet Count 270 10^3/uL (130-400); RBC 4.22 10^6/uL (3.93-5.22); RDW 12.7 % (11.7-14.6); RDW-SD 42.1 fL; WBC 9.18 10^3/uL (4.4-10.8)
[2023-11-13 18:30] LABS: ALT 17 U/L (14-59); AST 14 U/L (15-37); Albumin 3.9 g/dL (3.4-5.0); Alkaline Phosphatase 91 U/L (46-116); Anion Gap 11.8 mmol/L (3-11); BUN 11 mg/dL (7-18); Bilirubin, Total 0.7 mg/dL (0.2-1.0); CO2 24.2 mmol/L (21.0-32.0); CREATININE 0.9 mg/dL (0.55-1.02); Calcium 8.8 mg/dL (8.5-10.1); Chloride 106 mmol/L (98-107); Estimated GFR 84.44 (mL/min/1.73m2); Glucose 93 mg/dL (74-106); Lipase 22 U/L (16-77); Magnesium 2.1 mg/dL (1.8-2.4); Sodium 142 mmol/L (136-145); Total Protein 7.7 g/dL (6.4-8.2)
[2023-11-13] MEDS: Ibuprofen 400 MG TAB PO (18:56)
[2023-11-13] MEDS: Cyclobenzaprine 10 MG TAB PO (18:57)
[2023-11-13 19:10] VITALS: BP 134/82; PULSE 85; RESP 16; O2SAT 96
== END 2023-11-13 19:17 | disposition home or self-care (01) ==
PROVIDERS: Emergency Provider Registered Nurse Emergency; PCP Family Medicine
DX: M54.2 Cervicalgia (principal); V47.5XXD Car driver injured in collision with fixed or stationary object in traffic accident, subsequent encounter
CPT/HCPCS: 00123; 74177; 76604; 76705; 76857; 80053; 83690; 99285; 70450; 71260; 72125; 83735; 85025; 99283